=== PATIENT | male | born 1950 | race Asian ===

== ENCOUNTER → 2024-02-15 14:34 | Outpatient (REF) | payer OTHER, SELFPAY | LOC: CLINIC 14:34 | PROVIDERS: ATTENDING PHYSICIAN Orthopaedic Surgery | DX: M17.12 Unilateral primary osteoarthritis, left knee (principal); M17.11 Unilateral primary osteoarthritis, right knee | CPT/HCPCS: 73562; 73565 ==

== ENCOUNTER 2024-03-09 13:03 | Outpatient (RCR) | payer OTHER, SELFPAY | END 2024-03-09 23:59 | disposition home or self-care (01) | LOC: RPT 13:03 | PROVIDERS: ATTENDING PHYSICIAN Orthopaedic Surgery; FAMILY PHYSICIAN Nurse Practitioner Adult Health | DX: R26.9 Unspecified abnormalities of gait and mobility (principal); M17.12 Unilateral primary osteoarthritis, left knee; M17.11 Unilateral primary osteoarthritis, right knee | CPT/HCPCS: 97110; 97162; 97535 ==

== ENCOUNTER → 2024-03-22 08:10 | Outpatient (REF) | payer OTHER, SELFPAY ==
[2024-03-22 09:14] LABS: % Basophils 1.2 % (0-2); % Immature Granulocytes 0.3 % (0-0.5); % Lymphocytes 30.6 % (20.5-51.1); % Monocytes 6.9 % (1.7-9.3); Absolute Basophils 0.1 10^3/uL (0-0.2); Absolute Eosinophils 0.3 10^3/uL (0-0.7); Absolute Lymphocytes 2.1 10^3/uL (1.2-3.4); Absolute Monocytes 0.5 10^3/uL (0.1-0.6); Absolute Neutrophils 3.9 10^3/uL (1.4-6.5); Hematocrit 35.5 % (39.0-52.0); Hemoglobin 11.6 g/dL (13.0-18.0); Mean Corp Hgb Conc. 32.7 g/dL (33.0-37.0); Mean Corpuscular Hgb 29.6 pg (27.0-31.0); Mean Corpuscular Volume 90.6 fL (80.0-94.0); Mean Platelet Volume 11.2 fL (7.4-10.4); Nucleated Red Blood Cells % 0 % (-); Platelet Count 241 10^3/uL (130-400); Red Blood Cell Count 3.92 10^6/uL (4.70-6.10); Red Cell Dist. Width 12.9 % (11.5-14.5); White Blood Cell Count 6.9 10^3/uL (4.8-10.8)
[2024-03-22 10:02] LABS: ALT (SGPT) 14 U/L (0-50); AST (SGOT) 24 U/L (17-59); Albumin 4.4 g/dl (3.5-5.0); Alkaline Phosphatase 91 U/L (38-126); Blood Urea Nitrogen 27 mg/dl (9-20); Calcium 9.2 mg/dl (8.4-10.2); Carbon Dioxide 22 mmol/L (22-30); Chloride 106 mmol/L (98-107); Glucose 118 mg/dl (70-99); HDL Cholesterol 54 mg/dl; LDL Cholesterol, Calculated 105 mg/dl; Potassium 5.3 mmol/L (3.5-5.1); Sodium 143 mmol/L (135-145); Total Bilirubin 0.4 mg/dl (0.2-1.3); Total Cholesterol 171 mg/dl (50-199); Total Protein 7.5 g/dl (6.3-8.2); Triglyceride 63 mg/dl (10-149); Very Low Density Lipoprotein 12 mg/dl (0-30); eGFR > 60.00
== END ==
LOC: REG 08:10
PROVIDERS: ATTENDING PHYSICIAN Family Medicine
DX: I25.118 Atherosclerotic heart disease of native coronary artery with other forms of angina pectoris (principal)
CPT/HCPCS: 36415; 80053; 80061; 85025

== ENCOUNTER 2024-03-31 09:01 | Outpatient (RCR) | payer OTHER, SELFPAY | END 2024-03-31 23:59 | disposition home or self-care (01) | LOC: RPT 09:01 | PROVIDERS: ATTENDING PHYSICIAN Orthopaedic Surgery; FAMILY PHYSICIAN Nurse Practitioner Adult Health | DX: M17.0 Bilateral primary osteoarthritis of knee (principal); Z73.6 Limitation of activities due to disability; R26.89 Other abnormalities of gait and mobility; M62.81 Muscle weakness (generalized) | CPT/HCPCS: 97110 ==

== ENCOUNTER 2024-04-01 12:09 | Inpatient (IN) | payer OTHER, SELFPAY ==
[2024-04-01] VITALS (16 sets, daily range): BP systolic 107–169; BP diastolic 61–84; BMI 25.3
[2024-04-01] MEDS: PLAVIX 75 MG PO (08:07)
[2024-04-01] MEDS: LOW STRENGTH ASPIRIN 81 MG PO (08:07)
[2024-04-01] MEDS: NSS 230 ML IV (08:09)
--- NOTE | 2024-04-01 13:16 | HPS.HSE ---
Family Physician
-
Family Physician: NOT KNOW UNKNOWN - PT DOES
Chief Complaint
-
chest pain
History of Present Illness
73-year-old male who lives in [place] and follows with [facility] with past medical history of multivessel CAD, right bundle branch block, left anterior fascicular block, hypertension, hypercholesterolemia, presenting with progressive angina
over the past several months. History is obtained from patient's daughter. He has been having substernal chest discomfort that comes on with exertion and relieved by rest which has been getting worse. 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
catheterization today which again showed triple-vessel disease. He currently denies any symptoms.
He had coronary angiography in [facility] approximately 4 years ago and was recommended to have bypass surgery for multivessel CAD however he declined at that time.
No smoking or alcohol history.
No family history of heart conditions.
Medical History
Past Medical History
Past Medical History: Reports Other (multivessel CAD, right bundle branch block, left anterior fascicular block, hypertension, hypercholesterolemia)
Past Surgical History: Reports Other (hernia repair )
Social History
Tobacco: Non-smoker
Alcohol: None
Drug: None
Family History
Family History: Not pertinent
Allergies / Home Medications
Allergies reflects when Allergies were last updated in [employer].
Home Medications with original date entered in [employer]
Allergy/Medication List:
Allergies
Allergy/AdvReac Type Severity Reaction Status Date / Time
No Known Allergies Allergy Unverified 04/01/24 08:12
Home Medications
aspirin 81 mg chewable tablet 81 mg PO DAILY 04/01/24
atorvastatin 20 mg tablet 20 mg PO QPM 04/01/24
bisoprolol 2.5 mg-hydrochlorothiazide 6.25 mg tablet 1 tab PO DAILY 04/01/24
clopidogrel 75 mg tablet 75 mg PO DAILY 04/01/24
pantoprazole 40 mg tablet,delayed release 40 mg PO DAILY 04/01/24
telmisartan 40 mg-amlodipine 5 mg tablet 1 tab PO DAILY 04/01/24
Review of Systems
-
History Source: Patient
A 12 point ROS was completed and negative except as noted: Yes
Constitutional: Reports No Symptoms
EENT: Reports No Symptoms
Respiratory: Reports No Symptoms
Cardiac: Reports No Symptoms
Abdomen/GI: Reports No Symptoms
: Reports No Symptoms
Musculoskeletal: Reports No Symptoms
Skin: Reports No Symptoms
Neurological: Reports No Symptoms
Endocrine: Reports No Symptoms
Hematologic/Lymphatic: Reports No Symptoms
Psych: Reports No Symptoms
Physical Exam
Vital Signs
Vital Signs
Temp Pulse Resp BP Pulse Ox
97.9 F 56 16 135/76 99
04/01/24 08:02 04/01/24 12:31 04/01/24 07:56 04/01/24 12:31 04/01/24 12:31
Physical Exam
General: Well Developed, Well Nourished and No Apparent Distress
HEENT: NormoCephalic, Moist mucous membranes and Atraumatic
Respiratory: Clear
Cardiac: S1/S2 and Regular Rhythm; No Murmur or Rub
GI: Soft, Non Tender, Non Distended and Normal Bowel Sounds; No Organomegaly
Rectal: Deferred by Provider
Musculoskeletal: No Clubbing, No Cyanosis and No Edema
Skin: No Rash
Neuro: Nonfocal/grossly intact
Data Reviewed
-
Lab Data: Labs Reviewed by me
Old Records: Reviewed
Impression/Plan
-
IMPRESSION:
PLAN:
# Progressive angina secondary to triple-vessel CAD
-Underwent cardiac catheterization today showing triple-vessel CAD
-Continue aspirin and statin
-Cardiology following
-Cardiothoracic surgery consulted for consideration of CABG
-Hold Plavix for washout prior to CABG
-Check echo
History of right bundle branch block/left anterior fascicular block
Essential hypertension
-Stop telmisartan/amlodipine and continue amlodipine
-Stop bisoprolol/hydrochlorothiazide and continue Toprol-XL
Hypercholesterolemia
-Continue statin
GERD
-Continue Protonix
Full code
DVT prophylaxis�Lovenox
Cardiac diet
--- NOTE | 2024-04-01 13:49 | PTCARENOTE ---
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 pt is sr on the monitor, hr in the 60s, O2 99% RA.pt educated on plan of care and pt and family verbalized understanding. call noe within reach.
--- NOTE | 2024-04-01 14:10 | CONSULT.CT ---
Consultation
-
Date/Time Consultation Requested: 04/01/24
Date/Time Consultation Performed: 04/01/24 1415
Requesting Provider: Dr. Becka Singer MD
Performing Provider: Jeanine Chang PA-C
Reason for Consultation: Evaluation for coronary artery revascularization
Patient History
Physicians
Family Physician: Dr. Andreas Olvera MD.
Outpatient Parts Clerk Plant Maintenance: Dr. Pete Mcadams MD.
Inpatient Parts Clerk Plant Maintenance: [facility] Cardiology
History of Present Illness
Please note the information obtained for this consultation was gathered from the patient's daughter, due to the fact that the patient does not speak [place].
Patient is a 73-year-old male who was previously resided in [facility] and has subsequently been here since November 2023. Patient has PMH of multivessel CAD, he underwent coronary angiography in [facility] roughly 4 years ago and was recommended to have bypass
surgery, however declined. He also has a history of hypertension, hyperlipidemia, RBBB, and left anterior fascicular block.
Patient has been experiencing stable angina for the past 4 months. He reports intermittent chest pain with associated SOB/GONZÁLES and diaphoresis. Pain is relieved with rest. Symptoms have remained essentially the same from 4 years ago. Patient
sought medical attention with Cardiology, Dr. Pete Mcadams, who recommended outpatient elective cardiac catheterization.
Subsequent cardiac catheterization was performed today by Dr. Lucrecia MD. revealing multivessel CAD. CT surgery was consulted for evaluation of coronary artery revascularization.
Past Medical History
Past Medical History: Other
MV CAD, diagnosed s/p coronary angiography 4 years ago
HTN,HLD
RBBB
LAFB
Past Surgical History
Past Surgical History: Other
Right inguinal hernia repair 11/15/2023
Dental History
Noncontributory
Family History
Mother: at Age (85) and Cause of (Complications status post fall)
Father: at Age (90) and Cause of (Natural causes)
Social History
Alcohol: None
Drug: None
Tobacco: Non-Smoker
Personal:
Living: With Family (Daughter)
Employment: Retired (Formally worked in [employer] service)
Allergies
Allergy/AdvReac Type Severity Reaction Status Date / Time
No Known Allergies Allergy Unverified 04/01/24 08:12
Home Medications
�Medication �Instructions �Recorded �Confirmed �Type
aspirin 81 mg chewable tablet 81 mg PO DAILY 04/01/24 04/01/24 History
atorvastatin 20 mg tablet 20 mg PO QPM 04/01/24 04/01/24 History
bisoprolol 2.5 1 tab PO DAILY 04/01/24 04/01/24 History
mg-hydrochlorothiazide 6.25 mg
tablet
clopidogrel 75 mg tablet 75 mg PO DAILY 04/01/24 04/01/24 History
pantoprazole 40 mg tablet,delayed 40 mg PO DAILY 04/01/24 04/01/24 History
release
telmisartan 40 mg-amlodipine 5 mg 1 tab PO DAILY 04/01/24 04/01/24 History
tablet
Review of Systems
-
History Source: Family
General: Denies Fever, Weight Gain, Weight Loss, Fatigue or Night Sweats
HEENT: Denies Visual Changes, Dysphagia, Hoarseness or Sore Throat
Respiratory: Reports SOB and GONZÁLES; Denies Cough, Asthma or PND
Cardiac: Reports Chest Pain, CAD and Diaphoresis; Denies Known Vascular Disease, Palpitations, Nausea, Vomiting or Edema
Abdomen/GI: Denies Abdominal Pain, Reflux, Nausea or Vomiting
: Denies Dysuria, Frequency, Incontinence or Hematuria
Musculoskeletal: Denies Myalgias, Arthralgias or Edema
Skin: Denies Itching or Rash
Neurological: Denies CVA, TIA, Headaches, Syncope, Dizzy, Weakness or Seizures
Vascular: Denies Claudication or PVD
Physical Exam
Vital Signs
Temp 98.2 F 04/01/24 13:50
Temp route: Oral 04/01/24 13:50
Pulse 68 04/01/24 13:30
Rhythm: Normal sinus rhythm 04/01/24 12:30
Resp Rate 18 04/01/24 13:50
Blood pressure 138/82 04/01/24 13:30
Blood pressure extremity used: Left upper arm 04/01/24 13:50
Position: Lying 04/01/24 13:50
MAP (cuff-Juwan Monitor) 99 04/01/24 13:30
SaO2 99 04/01/24 13:50
Oxygen Mode of Delivery Room air 04/01/24 13:50
Can the patient verbally communicate their pain? Yes 04/01/24 13:09
Actual Weight 168 lb 10.458 oz 04/01/24 07:56
Body Mass Index (BMI) 25.3 04/01/24 07:56
Exam
General: Well Developed, Well Nourished and No Apparent Distress
HEENT: Normocephalic, Moist Mucous Membranes, Atraumatic, PERRLA and EOMI
Neck: Trachea Midline; Negative Carotid Bruit
Respiratory: Clear; Negative Wheezes, Crackles, Rhonchi or Accessory Muscle Use
Cardiac: S1/S2 and Regular Rhythm; Negative Murmur, Rub or Gallop
GI: Soft, Non Tender, Non Distended and Normal Bowel Sounds
Rectal: Deferred by Provider
Skin: Warm and Dry; Negative Rash
Neuro: AO x 3, Nonfocal/Grossly Intact and CN X-XII Intact
Extremities: Negative Upper Level Edema, Lower Level Edema, Upper Level Cyanosis, Lower Level Cyanosis, Upper Level Clubbing or Lower Level Clubbing
Psych: Calm
Assessment / Plan
-
Assessment:
73-year-old male with PMH of:
MV CAD, diagnosed s/p coronary angiography 4 years ago
HTN,HLD
RBBB
LAFB
Chronic Plavix therapy, last dose 04/01/24 8:07am
Now with:
Stable angina
Progressing MV CAD
Plan:
Patient's case will be discussed with attending physician.
Preoperative cardiothoracic surgery workup will be initiated.
Patient is amenable to coronary artery bypass grafting.
He will need to undergo Plavix washout, last dose is listed above.
Further details and ti lower inez regarding patient's intervention will be decided after attending physicians full review.
[2024-04-01] MEDS: TOPROL XL 25 MG PO (15:25)
[2024-04-01] MEDS: NORVASC 5 MG PO (15:26)
--- NOTE | 2024-04-01 16:21 | ITS.CL.CATH ---
Constitutional Law Professor - Catheterization
Cardiac Catheterization
Procedure Report:
LEFT HEART CATHETERIZATION
Date of Procedure: April 01, 2024
Referring: Klever Mcadams
PROCEDURES:
1. Left heart catheterization, coronary angiogram.
2. Ultrasound-guided access.
INDICATION: Patient is a 73-year-old gentleman with past medical history of hypertension, hyperlipidemia, coronary artery disease who presents with 4-month history of progressively worsening exertional angina who is now being referred for a left
heart catheterization to rule out obstructive CAD. Of note he was previously cath about [address] [facility] and was referred for coronary artery bypass grafting however tells me that given medications and controlled his symptoms he was
subsequently told that he does not need a surgery. He was referred to outpatient cardiology from [facility].
ACCESS: Right radial artery, 6 Burkinan sheath, under ultrasound guidance.
HEMODYNAMICS : (mmHg)
AO (s/d) : 140/72
LV (s/d) : 124/10
LVEDP : 14
CORONARY FINDINGS
DOMINANCE: Right
LEFT MAIN: The left main artery is a medium caliber vessel with moderate to severe mid to distal atherosclerotic plaque with significant pressure wave dampening and ventricularization with a 6 Burkinan diagnostic catheter.
LEFT ANTERIOR DESCENDING: The left anterior descending artery is a medium caliber heavily calcified vessel with 100% chronic total occlusion in the proximal portion with left to left and right to left collaterals. With collateral flow mid LAD
appears to be medium in caliber with a significant 80 to 85% distal LAD stenosis.
CIRCUMFLEX: The left circumflex artery is a medium caliber vessel which gives rise to 2 major obtuse marginal branches and 1 branching medium to large caliber left posterolateral branch. There is aneurysmal dilatation at the ostium with 50-60
percent proximal left circumflex stenosis, 40% mid left circumflex stenosis and otherwise mild diffuse atherosclerotic plaque. OM1 is a medium caliber vessel with 80% ostial stenosis and a second 70% lesion proximally. This vessel appears to be a
reasonable bypass target. OM 2 is a small caliber vessel with 85 to 90% proximal stenosis diffusely. The left posterolateral branch has a upper and lower branch which are both medium in caliber. Ostium to proximal portion of the vessel has
diffuse up to 70% stenosis involving both branches. This also appears to be a reasonable bypass target.
RIGHT CORONARY ARTERY: The right coronary artery is a small to medium caliber, dominant vessel which gives rise to the right posterior descending artery and the right posterolateral system with robust collaterals from right to left to the LAD. RCA
has serial 70% stenoses in the proximal to mid portion. Otherwise there is diffuse moderate atherosclerotic plaque within the vessel. RPDA has 2 serial 70% stenoses.
SEDATION: 61 minutes of procedural sedation was utilized. An independent er medical technician was present to assist with and help manage the patient's level of consciousness and physiologic status.
RADIATION SUMMARY: Fluoro Time (min): 12.7, Dose (mGy): 402.5, DAP (Gy.cm2) : 30.66
Closure Device: Vascular band over right radial artery, 10 cc of air.
CONCLUSIONS
1. Calcified coronary arteries with significant multivessel coronary artery disease.
2. Mildly elevated LVEDP at 14 mmHg.
RECOMMENDATIONS
1. Inpatient admission given progressively worsening symptoms in the setting of significant left main disease.
2. We will pursue CT surgery consult to discuss feasibility of coronary artery bypass grafting with bypasses possibly to LAD, OM1, LPL and RPDA.
3. Optimization of underlying medical therapy for coronary artery disease.
4. Obtain full echocardiogram to assess biventricular function and rule out significant valvular abnormalities.
5. Eventual referral for cardiac rehab as an outpatient.
Copy to: Klever Mcadams
Becka Singer MD, [facility]
--- NOTE | 2024-04-01 16:47 | CM ---
Addendum entered by RESHMA Leary 04/01/24 16:48:
*Of note, patient has no health insurance and will be HRSI.
[facility] for [facility].
Original Note:
CM following for DC planning needs.
Pt. resides in a private, 2 story home without any steps to enter with granddtr. and dtr.
Pt. is indep. w/ ADLs, mobility without the use of of any assisted device.
Will follow for DC planning needs.
--- NOTE | 2024-04-01 17:23 | PTCARENOTE ---
pt continues to be sr on the monitor, hr in the 60s, vss. pt denies cp/sob at this time. right radial band is off and dressing is CDI. pt offers no complaints at this time. pt and family educated on plan of care and pt verbalized understanding. pt
ambulating in room and tolerating well. call noe within reach.
[2024-04-01] MEDS: LIPITOR 80 MG PO (17:57)
[2024-04-01] MEDS: LOVENOX 40 MG SC (17:57)
--- NOTE | 2024-04-02 00:15 | PTCARENOTE ---
Pt. has had no complaints of chest pain so far this shift, VSS, sinus ronni 40's - 50's on the monitor. Right radial cath site dressing CDI with no hematoma and normal radial pulse. Pt. sleeping.
[2024-04-02 02:46] VITALS: BP 110/60
[2024-04-02 03:15] LABS: Hematocrit 33.4 % (39.0-52.0); Hemoglobin 11.3 g/dL (13.0-18.0); Mean Corp Hgb Conc. 33.8 g/dL (33.0-37.0); Mean Corpuscular Hgb 30.7 pg (27.0-31.0); Mean Corpuscular Volume 90.8 fL (80.0-94.0); Mean Platelet Volume 11.5 fL (7.4-10.4); Platelet Count 194 10^3/uL (130-400); Red Blood Cell Count 3.68 10^6/uL (4.70-6.10); White Blood Cell Count 5.7 10^3/uL (4.8-10.8)
[2024-04-02 03:26] LABS: INR 1.26; PT 15.6 Sec (11.4-14.6)
[2024-04-02 03:27] LABS: APTT 28.9 Sec (23.4-35.0)
[2024-04-02 03:39] LABS: ALT (SGPT) 15 U/L (0-50); AST (SGOT) 24 U/L (17-59); Albumin 3.8 g/dl (3.5-5.0); Alkaline Phosphatase 78 U/L (38-126); Blood Urea Nitrogen 16 mg/dl (9-20); Calcium 9.3 mg/dl (8.4-10.2); Carbon Dioxide 24 mmol/L (22-30); Chloride 105 mmol/L (98-107); Direct Bilirubin 0.2 mg/dl (0.0-0.4); Estimated Creatinine Clearance 63 ml/min; Glucose 101 mg/dl (70-99); HDL Cholesterol 52 mg/dl; LDL Cholesterol, Calculated 130 mg/dl; Potassium 4.5 mmol/L (3.5-5.1); Sodium 141 mmol/L (135-145); Total Bilirubin 0.6 mg/dl (0.2-1.3); Total Cholesterol 204 mg/dl (50-199); Total Protein 6.7 g/dl (6.3-8.2); Triglyceride 110 mg/dl (10-149); Very Low Density Lipoprotein 22 mg/dl (0-30); eGFR > 60.00
[2024-04-02 04:28] LABS: Hepatitis C Antibody Negative (Negative)
[2024-04-02 06:00] VITALS: BMI 24.8
[2024-04-02 07:02] VITALS: BP 122/62
--- NOTE | 2024-04-02 07:44 | W.PN.CARDCBS ---
Addendum entered and electronically signed by Augustine Barclay MD 04/02/24 09:10:
With the help of daughter as manager cargo, patient offers no complaintsPMH: Known multivessel CAD, right bundle ranch block, hypertension, hypercholesterolemia
Allergies none
Current medications: Subcu Lovenox, aspirin 81 mg a day, Protonix, atorvastatin 80 mg a day, amlodipine 5 mg daily, metoprolol ER 25 mg a day
122/62, pulse 51, respiratory rate 16, afebrile
Hemoglobin 11.3, BUN and creatinine 16 and 1.0, cholesterol 204 on atorvastatin 20 mg daily
Echo EF 55-60%, no significant valve abnormality
Cath: Severe mid-distal left main disease, 100% LAD with 80-85% distal LAD, aneurysmal ostial circumflex dilatation 50-60% proximal start stenosis, 40% mid circumflex, OM1 80% ostial and 70% proximal, OM2 85-90%, posterolateral with 70%, RCA with
70% serial stenoses
Impression:
Three-vessel CAD
Hypertension
Hyperlipidemia
Right bundle branch block
Plan:
Continue supportive care, await evaluation by CT surgery
No medication changes at present
Discussed with daughter.
Original Note:
Today's Communication / Plan
-
Continue CT surgery evaluation
Lipitor dose increased to 80mg daily
Continue aspirin 81mg daily
BP stable, continue Toprol and amlodipine
Impression / Plan
-
PCP: Dr. Robledo
Print Project Manager: Dr. Mcadams
Impression:
MV CAD by cath 04/01/2024
HTN
HLD
RBBB
LHC 04/01/2024: Left main: Moderate to severe mid to distal atherosclerotic plaque with significant pressure wave dampening and ventricularization with a 6 Yoruba diagnostic catheter. LAD: 100% chronic total occlusion of the proximal portion with
left to left and right to left collaterals. 80 to 85% distal LAD stenosis. LCx: Aneurysmal dilation at the ostium with a 50 to 60% proximal left circumflex stenosis. 40% mid left circumflex stenosis and otherwise mild diffuse atherosclerotic
plaque. OM1 is a medium caliber vessel with an 80% ostial stenosis and a second 70% lesion proximally. OM 2 is a small caliber vessel with 85 to 90% proximal stenosis diffusely. Left posterolateral branch has an upper and lower branch which are
both medium in caliber. Ostium to proximal portion of the vessel has a diffuse up to 70% stenosis involving both branches. RCA: Serial 70% stenoses in the proximal to midportion. Otherwise there is diffuse moderate atherosclerotic plaque. RPDA
has 2 serial 70% stenoses.
Echo 04/01/2024: EF 55 to 60%, aortic sclerosis, trace AI, mild MAC with trace MR, trace TR, estimated PAP 20 mmHg
Plan:
-Presenting for left heart catheterization due to typical, progressive angina. Previously told he had obstructive coronary artery disease noted by catheterization in [place]. Managed medically at the time.
-[facility] 04/01/2024 with significant multivessel coronary artery disease. CT surgery has been consulted and evaluation is ongoing
-No chest pain this admission while at rest. Continue to follow symptoms.
-Continue medical therapy with Norvasc 5 mg daily, and Toprol 25 mg daily. Blood pressure and heart rate stable.
-Prior to admission, he was on Plavix. Plavix now held in preparation for potential surgery next week. Continue aspirin 81 mg daily
-LDL 130. Placed on higher dose Lipitor 80 mg daily. Continue to follow.
Progress Note - Print Project Manager
Subjective
Date of Service: April 02, 2024
No chest pain or SOB overnight.
Objective
Labs:
04/02/24 02:54
04/02/24 02:54
Labs
Hgb 11.3 g/dL (13.0-18.0) L 04/02/24 02:54
Hct 33.4 % (39.0-52.0) L 04/02/24 02:54
Plt Count 194 10^3/uL (130-400) 04/02/24 02:54
PT 15.6 Sec (11.4-14.6) H 04/02/24 02:54
INR 1.26 04/02/24 02:54
APTT 28.9 Sec (23.4-35.0) 04/02/24 02:54
Sodium 141 mmol/L (135-145) 04/02/24 02:54
Potassium 4.5 mmol/L (3.5-5.1) 04/02/24 02:54
BUN 16 mg/dl (9-20) 04/02/24 02:54
Creatinine 1.0 mg/dL (0.7-1.3) 04/02/24 02:54
Glucose 101 mg/dl (70-99) H 04/02/24 02:54
Vital Signs and I&O:
Vital Signs
Temp Pulse Resp BP Pulse Ox
97.4 F 48 16 110/60 98
04/02/24 07:00 04/02/24 07:00 04/02/24 07:00 04/02/24 02:46 04/02/24 07:00
Vital Signs
Temp Pulse Resp BP Pulse Ox
97.4 F 48 16 110/60 98
04/02/24 07:00 04/02/24 07:00 04/02/24 07:00 04/02/24 02:46 04/02/24 07:00
Intake & Output
03/31/24 04/01/24 04/02/24 04/03/24
06:59 06:59 06:59 06:59
Intake Total 720 / 720
Balance 720 / 720
Physical Exam
Physical Exam
GEN: No distress, awake, alert, oriented x3
HEENT: supple, anicteric, mmm
LUNGS: CTA b/l, no wheezes/rales
CV: Reg, S1/S2, no murmur
EXT: No clubbing, cyanosis, or edema
NEURO: Gross non-focal
SKIN: Warm, dry, no rash
--- NOTE | 2024-04-02 07:48 | W.PN.HOSP.TC ---
Today's Communication/Plan
-
Anemia labs
Hemoglobin A1c
CT surgery consult
Assessment / Plan
Assessment / Plan
Gen-AAOx3, NAD
HEENT-NC, AT, anicteric, clear oral mm
Neck-supple
CV-reg, no M, +S1/S2
Lungs-clear B/L
Abd-soft, NT, ND
Ext-no edema
Musculoskeletal-no cyanosis, clubbing
Skin-warm and dry
Neuro-grossly non-focal
Psych-calm, cooperative
Multivessel CAD -cardiac catheterization noted. Presentation with chest discomfort. Troponins not sent on admission. Patient states last time he had chest pain was 3 to [address] surgery input for feasibility of CABG. Plavix
discontinued, last dose 04/01. Atorvastatin dose increased to 80 mg daily. Continue aspirin, Toprol-XL.
Admission EKG with sinus bradycardia, left axis deviation, right bundle branch block, T wave abnormality consistent with inferolateral ischemia.
Echocardiogram shows LVEF 55 to 60%, normal diastolic function, normal RV size and function, no significant valvular pathology.
Hyperglycemia -rule out DM2. Check hemoglobin A1c.
Normocytic anemia -suspect chronic. MCV 90.8. Hemoglobin 11.3. Will check anemia labs.
Essential hypertension -controlled.
Hyperlipidemia -continue atorvastatin.
Right bundle branch block/left anterior fascicular block
GERD -pantoprazole.
Full code
Anticipated Discharge: > 48 hours
Subjective/Interval History
-
Date of Service: April 02, 2024
Patient seen and examined. Denies chest pain, no complaints.
Objective Data
-
Labs:
Laboratory Results
04/02/24
02:54
WBC 5.7
Hgb 11.3 L
Hct 33.4 L
Plt Count 194
PT 15.6 H
INR 1.26
APTT 28.9
Sodium 141
Potassium 4.5
Chloride 105
Carbon Dioxide 24
BUN 16
Creatinine 1.0
Glucose 101 H
Calcium 9.3
Total Bilirubin 0.6
AST 24
ALT 15
Alkaline Phosphatase 78
Vital Signs:
Vital Signs
Temp Pulse Resp BP Pulse Ox
97.4 F 48 16 110/60 98
04/02/24 07:00 04/02/24 07:00 04/02/24 07:00 04/02/24 02:46 04/02/24 07:00
I&O
04/01/24 04/02/24 04/03/24
06:59 06:59 06:59
Intake Total 720 / 720
Balance 720 / 720
Review of Systems
-
History Source: Patient
All other systems: Reviewed and negative
[2024-04-02] MEDS: TOPROL XL 25 MG PO (08:43)
[2024-04-02] MEDS: PROTONIX 40 MG PO (08:43)
[2024-04-02] MEDS: LOW STRENGTH ASPIRIN 81 MG PO (08:43)
[2024-04-02] MEDS: NORVASC 5 MG PO (08:44)
[2024-04-02 09:32] LABS: Iron 63 ug/dl (49-181)
[2024-04-02 09:41] LABS: Percent Saturation 23 % (20-50); Total Iron Binding Capacity 272 ug/dl (261-462)
[2024-04-02 10:01] LABS: Glycohemoglobin (HgbA1c) 6.1 % (4.0-5.6)
[2024-04-02 11:19] VITALS: BP 114/74
[2024-04-02 11:36] LABS: Ferritin 66.8 ng/ml (17.9-464.0)
[2024-04-02 12:08] LABS: Folate 6.9 ng/ml (2.76-20); Vitamin B12 204 pg/ml (239-931)
[2024-04-02 16:18] VITALS: BP 139/63
[2024-04-02] MEDS: LOVENOX 40 MG SC (17:35)
[2024-04-02] MEDS: LIPITOR 80 MG PO (17:35)
--- NOTE | 2024-04-02 18:00 | PTCARENOTE ---
pt is sb on the monitor, hr in the 40s-50s, vss. pt offers no complaints at this time. pt denies cp/sob at this time. right radial is cdi. pt ambulating through the halls and tolerating well. pt educated on plan of care and pt verbalized
understanding. call noe within reach.
[2024-04-02 19:13] VITALS: BP 114/68
[2024-04-02 22:23] VITALS: BP 98/53
[2024-04-03] VITALS (9 sets, daily range): BP systolic 105–141; BP diastolic 68–84; BMI 24.8
--- NOTE | 2024-04-03 02:20 | PTCARENOTE ---
Pt. has no complaints of CP, SR-SB on the monitor (rate 40's with sleep, occasionally dips into the 30's). Right radial cath site WNL. Ambulates independently in halls and room when awake. Currently sleeping.
--- NOTE | 2024-04-03 08:09 | W.PN.HOSP.TC ---
Today's Communication/Plan
-
Oral B12
CT surgery consult
Assessment / Plan
Assessment / Plan
Gen-AAOx3, NAD
HEENT-NC, AT, anicteric, clear oral mm
Neck-supple
CV-reg, no M, +S1/S2
Lungs-clear B/L
Abd-soft, NT, ND
Ext-no edema
Musculoskeletal-no cyanosis, clubbing
Skin-warm and dry
Neuro-grossly non-focal
Psych-calm, cooperative
Multivessel CAD -cardiac catheterization noted. Presentation with chest discomfort. Troponins not sent on admission. Patient states last time he had chest pain was 3 to [address] surgery input for feasibility of CABG. Plavix
discontinued, last dose 04/01. Atorvastatin dose increased to 80 mg daily. Continue aspirin, Toprol-XL.
Admission EKG with sinus bradycardia, left axis deviation, right bundle branch block, T wave abnormality consistent with inferolateral ischemia.
Echocardiogram shows LVEF 55 to 60%, normal diastolic function, normal RV size and function, no significant valvular pathology.
Impaired fasting glucose -hemoglobin A1c 6.1%. Lifestyle changes needed.
Normocytic anemia -suspect chronic. MCV 90.8. Hemoglobin 11.3. Vitamin B12 deficiency noted, will start oral repletion.
Essential hypertension -controlled.
Hyperlipidemia -continue atorvastatin.
Right bundle branch block/left anterior fascicular block
GERD -pantoprazole.
Full code
Anticipated Discharge: > 48 hours
Subjective/Interval History
-
Date of Service: April 03, 2024
Patient seen and examined. No complaints.
Objective Data
-
Vital Signs:
Vital Signs
Temp Pulse Resp BP Pulse Ox
98.2 F 44 20 117/80 98
04/03/24 07:47 04/03/24 04:00 04/03/24 07:47 04/03/24 03:51 04/03/24 07:47
I&O
04/02/24 04/03/24 04/04/24
06:59 06:59 06:59
Intake Total 720 / 720 960 / 960
Balance 720 / 720 960 / 960
Review of Systems
-
History Source: Patient
All other systems: Reviewed and negative
[2024-04-03] MEDS: LOW STRENGTH ASPIRIN 81 MG PO (08:31)
[2024-04-03] MEDS: PROTONIX 40 MG PO (08:31)
[2024-04-03] MEDS: TOPROL XL 25 MG PO (08:32)
[2024-04-03] MEDS: NORVASC 5 MG PO (08:32)
[2024-04-03] MEDS: VITAMIN B-12 1000 MCG PO (08:32)
--- NOTE | 2024-04-03 11:08 | W.PN.UPDATE ---
Update Note
Progress Note Update
Brief CTS Note
No significant change overnight.
Remains chest pain free.
Planning for CABG on 04/[address] Alo Johnson.
Remainder of medical management per primary team in the interim.
--- NOTE | 2024-04-03 16:36 | W.PN.CARDCBS ---
Today's Communication / Plan
-
Stable cardiac status
Decrease metoprolol ER to 12.5 mg daily
CABG on
Impression / Plan
-
PCP: Dr. Robledo
Airport Planner: Dr. Mcadams
Impression:
MV CAD by cath 04/01/2024
HTN
HLD
RBBB
LHC 04/01/2024: Left main: Moderate to severe mid to distal atherosclerotic plaque with significant pressure wave dampening and ventricularization with a 6 [place] diagnostic catheter. LAD: 100% chronic total occlusion of the proximal portion with
left to left and right to left collaterals. 80 to 85% distal LAD stenosis. LCx: Aneurysmal dilation at the ostium with a 50 to 60% proximal left circumflex stenosis. 40% mid left circumflex stenosis and otherwise mild diffuse atherosclerotic
plaque. OM1 is a medium caliber vessel with an 80% ostial stenosis and a second 70% lesion proximally. OM 2 is a small caliber vessel with 85 to 90% proximal stenosis diffusely. Left posterolateral branch has an upper and lower branch which are
both medium in caliber. Ostium to proximal portion of the vessel has a diffuse up to 70% stenosis involving both branches. RCA: Serial 70% stenoses in the proximal to midportion. Otherwise there is diffuse moderate atherosclerotic plaque. RPDA
has 2 serial 70% stenoses.
Echo 04/01/2024: EF 55 to 60%, aortic sclerosis, trace AI, mild MAC with trace MR, trace TR, estimated PAP 20 mmHg
Plan:
He seems stable from a cardiac standpoint. He offers no complaints.
Blood pressure is well-controlled but he is very bradycardic, will decrease metoprolol ER to 12.5 mg daily.
CABG is currently scheduled for .
Discussed with daughter by phone.
Progress Note - Airport Planner
Subjective
Date of Service: April 03, 2024:
Per daughter on phone, patient offers no complaints. Surgery is tentatively scheduled for .
Current medications: Enoxaparin 40 mg a day, aspirin 81 mg a day, pantoprazole 40 mg a day, atorvastatin 80 mg a day, amlodipine 5 mg a day, metoprolol ER 25 mg daily, vitamin B12
127/73, pulse 44, respiratory 20, temp 36.6, afebrile, head neck exam unremarkable, lungs are clear, regular rate and rhythm, no obvious murmurs, abdomen benign, extremities without clubbing cyanosis or edema
No labs today
Bradycardic often mid 40s.
Objective
Labs:
04/02/24 02:54
04/02/24 02:54
Labs
Hgb 11.3 g/dL (13.0-18.0) L 04/02/24 02:54
Hct 33.4 % (39.0-52.0) L 04/02/24 02:54
Plt Count 194 10^3/uL (130-400) 04/02/24 02:54
PT 15.6 Sec (11.4-14.6) H 04/02/24 02:54
INR 1.26 04/02/24 02:54
APTT 28.9 Sec (23.4-35.0) 04/02/24 02:54
Sodium 141 mmol/L (135-145) 04/02/24 02:54
Potassium 4.5 mmol/L (3.5-5.1) 04/02/24 02:54
BUN 16 mg/dl (9-20) 04/02/24 02:54
Creatinine 1.0 mg/dL (0.7-1.3) 04/02/24 02:54
Glucose 101 mg/dl (70-99) H 04/02/24 02:54
Vital Signs and I&O:
Vital Signs
Temp Pulse Resp BP Pulse Ox
36.6 C 44 20 127/73 99
04/03/24 12:59 04/03/24 16:00 04/03/24 12:59 04/03/24 12:57 04/03/24 12:59
Vital Signs
Temp Pulse Resp BP Pulse Ox
36.6 C 44 20 127/73 99
04/03/24 12:59 04/03/24 16:00 04/03/24 12:59 04/03/24 12:57 04/03/24 12:59
Intake & Output
04/01/24 04/02/24 04/03/24 04/04/24
07:59 07:59 07:59 07:59
Intake Total 1200 / 1200 960 / 960
Balance 1200 / 1200 960 / 960
Physical Exam
Physical Exam
See above
[2024-04-03] MEDS: LOVENOX 40 MG SC (17:43)
[2024-04-03] MEDS: LIPITOR 80 MG PO (17:43)
--- NOTE | 2024-04-03 17:51 | PTCARENOTE ---
pt continues to be sb with PVCs, vss. pt offers no complaints at this time. pt educated about plan of care and pt verbalized understanding. call noe within reach.
--- NOTE | 2024-04-03 19:52 | PTCARENOTE ---
Pt. received at change of shift. Pt. seen and assessed in room. Pt. AOx3, no complaints of pain at this time. BP stable. Tele reading sinus ronni, no complaints of dizziness. Plan of care explained to patient. Call noe within reach. Continuing to
monitor at this time.
[2024-04-04] VITALS (7 sets, daily range): BP systolic 105–130; BP diastolic 61–74; BMI 24.7
--- NOTE | 2024-04-04 08:31 | W.PN.CARDCBS ---
Addendum entered and electronically signed by Augustine Barclay MD 04/04/24 13:42:
He offers no complaints, daughter at bedside
Current meds reviewed, metoprolol has been reduced to 12.5 mg daily
130/61, pulse now 60s on reduced metoprolol, respirate 18, afebrile, head neck exam unremarkable, lungs are clear, regular rate and rhythm, abdomen benign, extremities without edema
No labs today
Impression:
Multivessel CAD
Hypertension
Hyperlipidemia
Right bundle branch block
Plan:
Stable cardiac status, CABG planned for April 07
Original Note:
Today's Communication / Plan
-
Await CT surgery, tentatively planned 04/07
Impression / Plan
-
PCP: Dr. Robledo
President & Founder: Dr. Mcadams
Impression:
MV CAD by cath 04/01/2024
HTN
HLD
RBBB
LHC 04/01/2024: Left main: Moderate to severe mid to distal atherosclerotic plaque with significant pressure wave dampening and ventricularization with a 6 Chinese diagnostic catheter. LAD: 100% chronic total occlusion of the proximal portion with
left to left and right to left collaterals. 80 to 85% distal LAD stenosis. LCx: Aneurysmal dilation at the ostium with a 50 to 60% proximal left circumflex stenosis. 40% mid left circumflex stenosis and otherwise mild diffuse atherosclerotic
plaque. OM1 is a medium caliber vessel with an 80% ostial stenosis and a second 70% lesion proximally. OM 2 is a small caliber vessel with 85 to 90% proximal stenosis diffusely. Left posterolateral branch has an upper and lower branch which are
both medium in caliber. Ostium to proximal portion of the vessel has a diffuse up to 70% stenosis involving both branches. RCA: Serial 70% stenoses in the proximal to midportion. Otherwise there is diffuse moderate atherosclerotic plaque. RPDA
has 2 serial 70% stenoses.
Echo 04/01/2024: EF 55 to 60%, aortic sclerosis, trace AI, mild MAC with trace MR, trace TR, estimated PAP 20 mmHg
Plan:
-Presented for left heart catheterization due to typical, progressive angina. Previously told he had obstructive coronary artery disease noted by catheterization in [place], managed medically at the time.
-[facility] 04/01/2024 with significant multivessel coronary artery disease. CT surgery has been consulted and evaluation is ongoing. Tentatively for OR 04/07.
-Remains pain free this admission.
-Continue current medications. Toprol dose reduced 04/03 due to bradycardia.
-Plavix on hold this admission, continue aspirin 81mg daily for now.
-LDL 130. Placed on higher dose Lipitor 80 mg daily. Continue to follow.
Progress Note - President & Founder
Subjective
Date of Service: April 04, 2024
No complaints. Chest pain free.
Objective
Labs:
04/02/24 02:54
04/02/24 02:54
Labs
Hgb 11.3 g/dL (13.0-18.0) L 04/02/24 02:54
Hct 33.4 % (39.0-52.0) L 04/02/24 02:54
Plt Count 194 10^3/uL (130-400) 04/02/24 02:54
PT 15.6 Sec (11.4-14.6) H 04/02/24 02:54
INR 1.26 04/02/24 02:54
APTT 28.9 Sec (23.4-35.0) 04/02/24 02:54
Sodium 141 mmol/L (135-145) 04/02/24 02:54
Potassium 4.5 mmol/L (3.5-5.1) 04/02/24 02:54
BUN 16 mg/dl (9-20) 04/02/24 02:54
Creatinine 1.0 mg/dL (0.7-1.3) 04/02/24 02:54
Glucose 101 mg/dl (70-99) H 04/02/24 02:54
Vital Signs and I&O:
Vital Signs
Temp Pulse Resp BP Pulse Ox
97.7 F 47 18 128/71 97
04/04/24 03:31 04/04/24 05:00 04/04/24 03:31 04/04/24 03:31 04/03/24 22:28
Vital Signs
Temp Pulse Resp BP Pulse Ox
97.7 F 47 18 128/71 97
04/04/24 03:31 04/04/24 05:00 04/04/24 03:31 04/04/24 03:31 04/03/24 22:28
Intake & Output
04/02/24 04/03/24 04/04/24 04/05/24
06:59 06:59 06:59 06:59
Intake Total 720 / 720 960 / 960 480 / 480
Balance 720 / 720 960 / 960 480 / 480
Physical Exam
Physical Exam
GEN: No distress, awake, alert, oriented x3
HEENT: supple, anicteric, mmm
LUNGS: CTA b/l, no wheezes/rales
CV: Reg, S1/S2, no murmur
EXT: No clubbing, cyanosis, or edema
NEURO: Gross non-focal
SKIN: Warm, dry, no rash
[2024-04-04] MEDS: LOW STRENGTH ASPIRIN 81 MG PO (08:37)
[2024-04-04] MEDS: PROTONIX 40 MG PO (08:37)
[2024-04-04] MEDS: TOPROL XL 12.5 MG PO (08:38)
[2024-04-04] MEDS: VITAMIN B-12 1000 MCG PO (08:38)
[2024-04-04] MEDS: NORVASC 5 MG PO (08:38)
--- NOTE | 2024-04-04 15:42 | W.PN.HOSP.TC ---
Today's Communication/Plan
-
Offers no new complaints.
Chest pain-free.
Continue current cardiovascular regimen
Tentatively for bypass on 04/07
Assessment / Plan
Assessment / Plan
Impression:
Presentation with accelerated angina
Multivessel CAD by catheterization 04/01
Essential hypertension
Dyslipidemia
RBBB
Plan:
Multivessel CAD -cardiac catheterization noted. Presentation with chest discomfort. Troponins not sent on admission. Patient states last time he had chest pain was 3 to [address] surgery input for feasibility of CABG. Plavix
discontinued, last dose 04/01. Atorvastatin dose increased to 80 mg daily. Continue aspirin, Toprol-XL.
Admission EKG with sinus bradycardia, left axis deviation, right bundle branch block, T wave abnormality consistent with inferolateral ischemia.
Echocardiogram shows LVEF 55 to 60%, normal diastolic function, normal RV size and function, no significant valvular pathology.
Impaired fasting glucose -hemoglobin A1c 6.1%. Lifestyle changes needed.
Normocytic anemia -suspect chronic. MCV 90.8. Hemoglobin 11.3. Vitamin B12 deficiency noted, will start oral repletion.
Essential hypertension -controlled.
Hyperlipidemia -continue atorvastatin.
Right bundle branch block/left anterior fascicular block
GERD -pantoprazole.
Full code
Anticipated Discharge: > 48 hours
Subjective/Interval History
-
Date of Service: April 04, 2024
Objective Data
-
Vital Signs:
Vital Signs
Temp Pulse Resp BP Pulse Ox
97.5 F 67 18 130/61 99
04/04/24 12:07 04/04/24 08:40 04/04/24 12:07 04/04/24 08:40 04/04/24 12:07
I&O
04/03/24 04/04/24 04/05/24
06:59 06:59 06:59
Intake Total 960 / 960 480 / 480
Balance 960 / 960 480 / 480
Physical Exam
-
General: Well Developed and No Apparent Distress
HEENT: Normocephalic, Atraumatic and Moist Mucous Membranes
Respiratory: Clear to Auscultation
Cardiac: Regular Rhythm and S1/S2; Negative Murmur, Rub or Gallop
GI: Soft, Nontender, Nondistended and Normal Bowel Sounds; Negative Organomegaly
Rectal: Deferred by Provider
Musculoskeletal: No Clubbing, No Cyanosis and No Edema
Skin: Negative Rash
Neuro: Nonfocal/Grossly Intact
--- NOTE | 2024-04-04 17:29 | CM ---
plan CABG thurs 04/07- cm to do pre op teaching tomorrow.
[2024-04-04] MEDS: LIPITOR 80 MG PO (18:18)
[2024-04-04] MEDS: LOVENOX 40 MG SC (18:18)
--- NOTE | 2024-04-04 20:26 | PTCARENOTE ---
Pt. received at change of shift. Pt. seen and assessed in room. Pt. sitting comfortably in chair, no complaints of chest pain, shortness of breath or dizziness. BP stable. Tele reading SB in the 50s-60s. Plan of care explained to pt. via language
line. Pt. verbalizes understanding. Call noe within reach. Continuing to monitor at this time.
[2024-04-05] VITALS (7 sets, daily range): BP systolic 100–124; BP diastolic 65–80; BMI 24.7
[2024-04-05] MEDS: VITAMIN B-12 1000 MCG PO (09:45)
[2024-04-05] MEDS: TOPROL XL 12.5 MG PO (09:45)
[2024-04-05] MEDS: NORVASC 5 MG PO (09:45)
[2024-04-05] MEDS: PROTONIX 40 MG PO (09:45)
[2024-04-05] MEDS: LOW STRENGTH ASPIRIN 81 MG PO (09:45)
--- NOTE | 2024-04-05 12:17 | W.PN.CARDCBS ---
Addendum entered and electronically signed by Brennon Vegas MD 04/05/24 13:12:
I saw and examined the patient.
The HAZARDOUS MATERIALS ANALYST or PA's note was reviewed and I agree with the note.
Comment: General: Well developed, well nourished in NAD.
Neck: Supple, no JVD, HJR, carotids +2 B/L, no bruits bilaterally.
Heart: Non displaced PMI, RRR, no murmurs, No S3, S4, no rubs.
Lungs: Clear to auscultation bilaterally, no wheeze, rhonchi, rubs bilaterally,
normal expiratory phase.
Extremities: No clubbing, cyanosis or edema bilaterally.
Neuro: Grossly nonfocal, awake, alert and oriented x3.
Stable cardiology status. For CABG on 04/07.
Original Note:
Today's Communication / Plan
-
OR on
No chest pain
Impression / Plan
-
PCP: Dr. Robledo
Corn Breeder: Dr. Mcadams
Impression:
MV CAD by cath 04/01/2024
HTN
HLD
RBBB
LHC 04/01/2024: Left main: Moderate to severe mid to distal atherosclerotic plaque with significant pressure wave dampening and ventricularization with a 6 [place]ian diagnostic catheter. LAD: 100% chronic total occlusion of the proximal portion with
left to left and right to left collaterals. 80 to 85% distal LAD stenosis. LCx: Aneurysmal dilation at the ostium with a 50 to 60% proximal left circumflex stenosis. 40% mid left circumflex stenosis and otherwise mild diffuse atherosclerotic
plaque. OM1 is a medium caliber vessel with an 80% ostial stenosis and a second 70% lesion proximally. OM 2 is a small caliber vessel with 85 to 90% proximal stenosis diffusely. Left posterolateral branch has an upper and lower branch which are
both medium in caliber. Ostium to proximal portion of the vessel has a diffuse up to 70% stenosis involving both branches. RCA: Serial 70% stenoses in the proximal to midportion. Otherwise there is diffuse moderate atherosclerotic plaque. RPDA
has 2 serial 70% stenoses.
Echo 04/01/2024: EF 55 to 60%, aortic sclerosis, trace AI, mild MAC with trace MR, trace TR, estimated PAP 20 mmHg
Plan:
-Patient was referred for elective LHC on 04/01/24 by [facility]. Patient reported that he had previously been recommended CABG in [place] in about 2019. Cardiac cath revealed MV CAD and patient was recommended admission due
to symptoms and severity of CAD.
-No chest pain since admission.
-Cont aspirin 81 mg daily.
-Outpatient dose of Plavix on hold in anticipation of CT surgery. Last dose of Plavix was 04/01/24
-LDL 130. Outpatient dose of atorvastatin increased to 80 mg daily.
-Per CT surgery team note, OR planned for 04/07/24
Progress Note - Corn Breeder
Subjective
Date of Service: April 05, 2024
He feels well, no chest pain
Objective
Labs:
04/02/24 02:54
04/02/24 02:54
Labs
Hgb 11.3 g/dL (13.0-18.0) L 04/02/24 02:54
Hct 33.4 % (39.0-52.0) L 04/02/24 02:54
Plt Count 194 10^3/uL (130-400) 04/02/24 02:54
PT 15.6 Sec (11.4-14.6) H 04/02/24 02:54
INR 1.26 04/02/24 02:54
APTT 28.9 Sec (23.4-35.0) 04/02/24 02:54
Sodium 141 mmol/L (135-145) 04/02/24 02:54
Potassium 4.5 mmol/L (3.5-5.1) 04/02/24 02:54
BUN 16 mg/dl (9-20) 04/02/24 02:54
Creatinine 1.0 mg/dL (0.7-1.3) 04/02/24 02:54
Glucose 101 mg/dl (70-99) H 04/02/24 02:54
Vital Signs and I&O:
Vital Signs
Temp Pulse Resp BP Pulse Ox
98.2 F 61 18 118/80 100
04/05/24 11:36 04/05/24 08:00 04/05/24 11:36 04/05/24 07:53 04/05/24 11:36
Vital Signs
Temp Pulse Resp BP Pulse Ox
98.2 F 61 18 118/80 100
04/05/24 11:36 04/05/24 08:00 04/05/24 11:36 04/05/24 07:53 04/05/24 11:36
Intake & Output
04/03/24 04/04/24 04/05/24 04/06/24
06:59 06:59 06:59 06:59
Intake Total 960 / 960 480 / 480 150 / 150 240 / 240
Balance 960 / 960 480 / 480 150 / 150 240 / 240
Physical Exam
Physical Exam
GEN: NAD. AAOx3
HEENT: EOMI, MMM
LUNGS: No audible wheeze
CV: SR on tele
ABD: ND
EXT: No edema B/L, +PT pulses B/L
NEURO: Gross non-focal
SKIN: No rash
--- NOTE | 2024-04-05 13:45 | W.PN.UPDATE ---
Addendum entered and electronically signed by Alo Johnson MD 04/05/24 16:07:
I saw and examined the patient.
The PA's note was reviewed and I agree with the note.
Comment:
CARDIAC SURGERY ATTENDING:
I had a greater than 60-minute conversation with Mr. Patel and his daughter with the aid of Johnny shredding machine knife changer. We reviewed his coronary pathology, the proposed operative management mentions, the associated operative risks (including, but not limited
to, , stroke, PA, arrhythmia, PNA, SEBASTIAN/F, bleeding, and infection), the expected in-hospital postprocedural course, and expected outpatient recovery. All questions were answered to the best of my abilities. The patient is agreeable to proceed
with surgery. I have tentatively scheduled him for this coming . I anticipate coronary artery bypass grafting x 3-4 with MOI to LAD, GSV to OM1, GSV to LPL, and hopefully GSV to PDA (will require intraoperative assessment).
Thank you for the opportunity to participate in the care of this kind gentleman.
Please call with any questions or concerns.
Alo Johnson MD
[phone]
Original Note:
Update Note
Progress Note Update
Surgery Date is 04/[address] Johnson
Procedure Type:�Isolated CABG
PERIOPERATIVE OUTCOME ESTIMATE %
Operative Mortality 1.13%
Morbidity & Mortality 6.82%
Stroke 1.73%
Renal Failure 0.882%
Reoperation 3%
Prolonged Ventilation 3.29%
Deep Sternal Wound Infection 0.076%
Long Hospital Stay (>14 days) 4.54%
Short Hospital Stay (<6 days)* 42.5%
Clinical Summary
Planned Surgery: Isolated CABG, Urgent, First cardiovascular surgery
Demographics: 73 year old, , male, 77kg, 174cm, BMI: 25.4 kg/m�
Lab Values: Creatinine: 1 mg/dL, Hematocrit: 33.4%, WBC Count: 5.7 10�/�L, Platelet Count: 304305 cells/�L
Substance Abuse: Never smoker
Risk Factors / Comorbidities: Diabetes Mellitus , Hypertension
Cardiac Status: Ejection Fraction = 55%
Coronary Artery Disease: 3 vessels diseased, Proximal LAD Stenosis >=70%, Non-ST Elevation PA, PA: 1 to 7 Days
Valve Disease: Trivial/Trace AR, Trivial/Trace MR, Trivial/Trace TR
--- NOTE | 2024-04-05 16:26 | W.PN.HOSP.TC ---
Today's Communication/Plan
-
For CABG on 04/07
Assessment / Plan
Assessment / Plan
Impression:
Presentation with accelerated angina
Multivessel CAD by catheterization 04/01
Essential hypertension
Dyslipidemia
RBBB
Plan:
Multivessel CAD
Cardiac catheter revealing multivessel CAD and patient recommended CABG
Currently chest pain-free while on aspirin, statin, beta-raheem
Last Plavix dose 04/01
Plan is for CABG on 04/07.
Impaired fasting glucose -hemoglobin A1c 6.1%. Lifestyle changes needed.
Normocytic anemia -suspect chronic. MCV 90.8. Hemoglobin 11.3. Vitamin B12 deficiency noted, will start oral repletion.
Essential hypertension -controlled.
Hyperlipidemia -continue atorvastatin.
Right bundle branch block/left anterior fascicular block
GERD -pantoprazole.
Full code
Anticipated Discharge: > 48 hours
Subjective/Interval History
-
Date of Service: April 05, 2024
Objective Data
-
Vital Signs:
Vital Signs
Temp Pulse Resp BP Pulse Ox
98.2 F 61 18 118/80 100
04/05/24 11:36 04/05/24 08:00 04/05/24 11:36 04/05/24 07:53 04/05/24 11:36
I&O
04/04/24 04/05/24 04/06/24
06:59 06:59 06:59
Intake Total 480 / 480 150 / 150 240 / 240
Balance 480 / 480 150 / 150 240 / 240
Physical Exam
-
General: Well Developed and No Apparent Distress
HEENT: Normocephalic, Atraumatic and Moist Mucous Membranes
Respiratory: Clear to Auscultation
Cardiac: Regular Rhythm and S1/S2; Negative Murmur, Rub or Gallop
GI: Soft, Nontender, Nondistended and Normal Bowel Sounds; Negative Organomegaly
Rectal: Deferred by Provider
Musculoskeletal: No Clubbing, No Cyanosis and No Edema
Skin: Negative Rash
Neuro: Nonfocal/Grossly Intact
--- NOTE | 2024-04-05 17:17 | CM ---
spoke to pt and daughter in room ( she translated) we discussed preop teaching including kishore farias driving restrictions, he is prev indep, lives with hi daughter and drandaughter in a 2 story ome with no steps to enter. he does not use any dme's.
he is agreeable to a f/u visit from the ct transitional care nurse after dc. he has the ct surgery educ book. plan is for cabg 04/07, cm to follow.
[2024-04-05] MEDS: LIPITOR 80 MG PO (18:07)
[2024-04-05] MEDS: LOVENOX 40 MG SC (18:07)
[2024-04-06 04:23] VITALS: BP 119/78
[2024-04-06 04:26] VITALS: BMI 24.6
[2024-04-06 08:14] VITALS: BP 140/71
[2024-04-06] MEDS: LOW STRENGTH ASPIRIN 81 MG PO (08:17)
[2024-04-06] MEDS: NORVASC 5 MG PO (08:17)
[2024-04-06] MEDS: VITAMIN B-12 1000 MCG PO (08:18)
[2024-04-06] MEDS: TOPROL XL 12.5 MG PO (08:18)
[2024-04-06] MEDS: PROTONIX 40 MG PO (08:18)
[2024-04-06] MEDS: FLUSH (NSS) 1 FLUSH IV (08:18)
--- NOTE | 2024-04-06 08:27 | W.PN.CARDCBS ---
Addendum entered and electronically signed by Brennon Vegas MD 04/06/24 12:10:
I saw and examined the patient.
The SMALL EQUIPMENT OPERATOR or PA's note was reviewed and I agree with the note.
Comment: General: Well developed, well nourished in NAD.
No chest pain. For CABG in a.m. Discussed with patient and family at bedside. Discussed with CT surgery.
Original Note:
Today's Communication / Plan
-
Chest pain free
Scheduled for CABG in AM
Check ECG today and then follow post-op
Impression / Plan
-
PCP: Dr. Robledo
Crozer Operator: Dr. Mcadams
Impression:
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
HTN
HLD
RBBB
LHC 04/01/2024: Left main: Moderate to severe mid to distal atherosclerotic plaque with significant pressure wave dampening and ventricularization with a 6 [place] diagnostic catheter. LAD: 100% chronic total occlusion of the proximal portion with
left to left and right to left collaterals. 80 to 85% distal LAD stenosis. LCx: Aneurysmal dilation at the ostium with a 50 to 60% proximal left circumflex stenosis. 40% mid left circumflex stenosis and otherwise mild diffuse atherosclerotic
plaque. OM1 is a medium caliber vessel with an 80% ostial stenosis and a second 70% lesion proximally. OM 2 is a small caliber vessel with 85 to 90% proximal stenosis diffusely. Left posterolateral branch has an upper and lower branch which are
both medium in caliber. Ostium to proximal portion of the vessel has a diffuse up to 70% stenosis involving both branches. RCA: Serial 70% stenoses in the proximal to midportion. Otherwise there is diffuse moderate atherosclerotic plaque. RPDA
has 2 serial 70% stenoses.
Echo 04/01/2024: EF 55 to 60%, aortic sclerosis, trace AI, mild MAC with trace MR, trace TR, estimated PAP 20 mmHg
Plan:
-No chest pain overnight.
-Patient is scheduled for CABG on 04/07/24
-Last ECG was 04/01/24, will recheck 04/06/24 and then follow post-op
-Cont aspirin 81 mg daily.
-Outpatient dose of Plavix on hold in anticipation of CT surgery. Last dose of Plavix was 04/01/24
-LDL 130. Outpatient dose of atorvastatin increased to 80 mg daily.
HPI: Patient was referred for elective LHC on 04/01/24 by the [facility]. Patient reported that he had previously been recommended CABG in [place] in about 2019. Cardiac cath revealed MV CAD and patient was recommended admission
due to symptoms and severity of CAD.
Progress Note - Crozer Operator
Subjective
Date of Service: April 06, 2024
He feels well, no chest pain
Objective
Labs:
04/02/24 02:54
04/02/24 02:54
Labs
Hgb 11.3 g/dL (13.0-18.0) L 04/02/24 02:54
Hct 33.4 % (39.0-52.0) L 04/02/24 02:54
Plt Count 194 10^3/uL (130-400) 04/02/24 02:54
PT 15.6 Sec (11.4-14.6) H 04/02/24 02:54
INR 1.26 04/02/24 02:54
APTT 28.9 Sec (23.4-35.0) 04/02/24 02:54
Sodium 141 mmol/L (135-145) 04/02/24 02:54
Potassium 4.5 mmol/L (3.5-5.1) 04/02/24 02:54
BUN 16 mg/dl (9-20) 04/02/24 02:54
Creatinine 1.0 mg/dL (0.7-1.3) 04/02/24 02:54
Glucose 101 mg/dl (70-99) H 04/02/24 02:54
Vital Signs and I&O:
Vital Signs
Temp Pulse Resp BP Pulse Ox
97.9 F 56 16 140/71 99
04/06/24 08:14 04/06/24 08:17 04/06/24 08:14 04/06/24 08:17 04/06/24 08:14
Vital Signs
Temp Pulse Resp BP Pulse Ox
97.9 F 56 16 140/71 99
04/06/24 08:14 04/06/24 08:17 04/06/24 08:14 04/06/24 08:17 04/06/24 08:14
Intake & Output
04/04/24 04/05/24 04/06/24 04/07/24
06:59 06:59 06:59 06:59
Intake Total 480 / 480 150 / 150 240 / 240
Balance 480 / 480 150 / 150 240 / 240
Physical Exam
Physical Exam
GEN: NAD. AAOx3
HEENT: EOMI, MMM
LUNGS: No audible wheeze
CV: SR on tele
ABD: ND
EXT: No edema B/L, +PT pulses B/L
NEURO: Gross non-focal
SKIN: No rash
--- NOTE | 2024-04-06 09:26 | W.PN.UPDATE ---
Update Note
Progress Note Update
Consent obtained. Pre-operative ordered placed. CABG tomorrow with Dr. mg.
--- NOTE | 2024-04-06 10:07 | PTCARENOTE ---
Received patient this morning sitting oob in the chair eating his breakfast. Patient is able to communicate basic needs in czech and denies any chest pain. Very pleasant and cooperative. Right radial site is open to air with no signs of hematoma.
Call noe in reach, doing ordered EKG now.
[2024-04-06 11:22] VITALS: BP 143/65
--- NOTE | 2024-04-06 13:17 | CM ---
CM following for DC planning needs.
Plan is for CT Surgery on ., 04/07.
Anticipated DC plan is for home w/ CT Transitional Care RN.
CM to cont. to follow.
--- NOTE | 2024-04-06 13:33 | PTCARENOTE ---
Patient's daughter in visiting and is able to translate. She informed him of planned prep/shower tonight, remaining NPO x midnight expcept for meds. Patient is offering no complaints, eating lunch now. His daughter will be here early tomorrow
morning before scheduled surgery.
[2024-04-06 15:16] VITALS: BP 127/80
--- NOTE | 2024-04-06 17:34 | W.PN.UPDATE ---
Update Note
Progress Note Update
Multivessel CAD.
Patient is for coronary artery bypass graft on 04/07.
Hospitalist service will sign off.
[2024-04-06] MEDS: LIPITOR 80 MG PO (17:46)
[2024-04-06 19:20] VITALS: BP 147/71
[2024-04-06 23:33] VITALS: BP 116/75
[2024-04-07] VITALS (53 sets, daily range): BP systolic 72–158; BP diastolic 51–91; BMI 24.3
[2024-04-07] MEDS: MAGNESIUM OXIDE 500 MG PO (06:13)
[2024-04-07] MEDS: PROTONIX 40 MG PO (06:13)
[2024-04-07] MEDS: LOPRESSOR 12.5 MG PO (06:13)
[2024-04-07] MEDS: BACTROBAN 2% OINTMENT 1 APPLIC NASAL ×2 (06:15→21:53)
--- NOTE | 2024-04-07 07:03 | PTCARENOTE ---
Pt NPO at midnight for CABG, Clips and CHG prep completed. VSS, Pt denies any pain or discomfort.
[2024-04-07 07:26] LABS: ACT+ - POC 104 Seconds (82-134)
[2024-04-07 08:02] LABS: Urine Albumin Trace (Neg - Trace); Urine Bilirubin Negative (Negative); Urine Character Clear (Clear); Urine Color Yellow; Urine Glucose Negative (Negative); Urine Ketone Negative (Negative); Urine Leukocyte Negative (Negative); Urine Nitrite Negative (Negative); Urine Occult Blood 3+ (Negative); Urine Urobilinogen Negative (Neg - 1+)
[2024-04-07 08:15] LABS: Urine Mucus Few
[2024-04-07 08:16] LABS: Urine Red Blood Cell 16-20 /HPF (0-2)
[2024-04-07 08:18] LABS: Urine White Cell 0-2 /HPF (0-5)
[2024-04-07 08:50] LABS: B.E. - POC -0.2 mmol/L; Glucose - POC 137 mg/dl (70-99); HCO3 - POC 23 mmol/L (21-29); Hematocrit - POC 35 % PCV (42-52); Hemodilution- POC Yes; Hemoglobin Calculated - POC 12.1; Ionized Calcium - POC 1.13 mmol/L (1.12-1.27); O2 Saturation %Calculated-POC 99.9 5 (92-96); PCO2 - POC 33 mmHg (35-45); PO2 - POC 278 mmHg (80-100); POC Comment PRE; Potassium - POC 3.9 mmol/L (3.6-5.0); Sodium - POC 139 mmol/L (135-145); pH - POC 7.45 (7.35-7.45)
[2024-04-07 09:40] LABS: ACT+ - POC 601 Seconds (82-134)
[2024-04-07 10:21] LABS: ACT+ - POC 470 Seconds (82-134)
[2024-04-07 10:30] LABS: B.E. - POC -2.1 mmol/L; Glucose - POC 159 mg/dl (70-99); HCO3 - POC 27 mmol/L (21-29); Hematocrit - POC 32 % PCV (42-52); Hemodilution- POC No; Hemoglobin Calculated - POC 10.9; Ionized Calcium - POC 1.21 mmol/L (1.12-1.27); O2 Saturation %Calculated-POC 99.7 5 (92-96); PCO2 - POC 66 mmHg (35-45); PO2 - POC 232 mmHg (80-100); POC Comment PRE; Potassium - POC 4.3 mmol/L (3.6-5.0); Sodium - POC 138 mmol/L (135-145); pH - POC 7.22 (7.35-7.45)
[2024-04-07 10:41] LABS: ACT+ - POC 541 Seconds (82-134)
[2024-04-07 11:11] LABS: B.E. - POC 3.4 mmol/L; Glucose - POC 167 mg/dl (70-99); HCO3 - POC 28 mmol/L (21-29); Hematocrit - POC 23 % PCV (42-52); Hemodilution- POC Yes; Ionized Calcium - POC 0.91 mmol/L (1.12-1.27); PCO2 - POC 40 mmHg (35-45); PO2 - POC 387 mmHg (80-100); POC Comment CPB; Potassium - POC 5.8 mmol/L (3.6-5.0); Sodium - POC 138 mmol/L (135-145); pH - POC 7.45 (7.35-7.45)
[2024-04-07 11:21] LABS: ACT+ - POC 506 Seconds (82-134)
--- NOTE | 2024-04-07 11:34 | CM ---
Chart reviewed. Patient is in the OR today. Patient is her visiting with his daughter from [place]. Patient is independent of ADLS, lives with his daughter and granddaughter in a 2 STH, 0 ELOY, 0 DME. Plan is for the patient to return home with CT
Transitional RN. CM to follow
[2024-04-07 11:52] LABS: B.E. - POC 2.5 mmol/L; Glucose - POC 179 mg/dl (70-99); HCO3 - POC 27 mmol/L (21-29); Hematocrit - POC 24 % PCV (42-52); Hemodilution- POC Yes; Hemoglobin Calculated - POC 8.1; Ionized Calcium - POC 0.89 mmol/L (1.12-1.27); PCO2 - POC 38 mmHg (35-45); PO2 - POC 385 mmHg (80-100); POC Comment CPB; Potassium - POC 6.3 mmol/L (3.6-5.0); Sodium - POC 137 mmol/L (135-145); pH - POC 7.45 (7.35-7.45)
[2024-04-07 12:03] LABS: ACT+ - POC 579 Seconds (82-134)
[2024-04-07 12:24] LABS: B.E. - POC 0.8 mmol/L; Glucose - POC 148 mg/dl (70-99); HCO3 - POC 25 mmol/L (21-29); Hematocrit - POC 25 % PCV (42-52); Hemodilution- POC Yes; Hemoglobin Calculated - POC 8.6; Ionized Calcium - POC 0.95 mmol/L (1.12-1.27); O2 Saturation %Calculated-POC 99.8 5 (92-96); PCO2 - POC 37 mmHg (35-45); PO2 - POC 218 mmHg (80-100); POC Comment WARM; Potassium - POC 4.8 mmol/L (3.6-5.0); Sodium - POC 140 mmol/L (135-145); pH - POC 7.43 (7.35-7.45)
[2024-04-07 12:38] LABS: ACT+ - POC 530 Seconds (82-134)
[2024-04-07 13:06] LABS: B.E. - POC 0.8 mmol/L; Glucose - POC 134 mg/dl (70-99); HCO3 - POC 26 mmol/L (21-29); Hematocrit - POC 25 % PCV (42-52); Hemodilution- POC Yes; Hemoglobin Calculated - POC 8.4; Ionized Calcium - POC 0.93 mmol/L (1.12-1.27); O2 Saturation %Calculated-POC 99.9 5 (92-96); PCO2 - POC 42 mmHg (35-45); PO2 - POC 316 mmHg (80-100); POC Comment WARM; Potassium - POC 4.4 mmol/L (3.6-5.0); Sodium - POC 142 mmol/L (135-145)
[2024-04-07 13:10] LABS: ACT+ - POC 107 Seconds (82-134)
[2024-04-07 13:15] LABS: B.E. - POC -0.6 mmol/L; Glucose - POC 126 mg/dl (70-99); HCO3 - POC 24 mmol/L (21-29); Hematocrit - POC 25 % PCV (42-52); Hemodilution- POC Yes; Hemoglobin Calculated - POC 8.4; Ionized Calcium - POC 1.17 mmol/L (1.12-1.27); O2 Saturation %Calculated-POC 99.6 5 (92-96); PCO2 - POC 41 mmHg (35-45); PO2 - POC 184 mmHg (80-100); POC Comment POST; Potassium - POC 3.8 mmol/L (3.6-5.0); Sodium - POC 142 mmol/L (135-145); pH - POC 7.38 (7.35-7.45)
--- NOTE | 2024-04-07 13:37 | W.CVOR.SURPR ---
CVOR Surgeon Immed Pre Op
-
I have examined this patient prior to performance of the scheduled procedure.
The patient's condition is unchanged from the time of the dictated/written History and
Physical and the patient is able to undergo the scheduled procedure.
--- NOTE | 2024-04-07 13:37 | W.IMMPOSTOP ---
Addendum entered and electronically signed by Alo Johnson MD 04/07/24 15:15:
[id number]
Original Note:
Surgical Immed Post Op Note
-
CARDIAC SURGERY OPERATIVE NOTE:
Preoperative Dx:
MVCAD including ROUTE CARRIER of LAD
Unstable/escalating angina
HTN/HLD
Postoperative Dx:
Same
Procedures:
1) Median sternotomy
2) Takedown of MOI (narrow pedicle)
3) Endoscopic harvest/prep of RLE GSV
4) CABG x 4 (MOI to LAD, GSV to OM1, GSV to LPL1, GSV to PDA)
Surgeon:
Alo Johnson M.D.
Skin Installer:
Jeanine Chang P.A.-C.; wheelchair van operator first responder throughout; closure
Anesthesia:
Willian Crockett M.D. and Iveth Tran, C.R.N.A.
Perfusion:
Tommie Phoenix C.C.P.; CPB 165, XC: 101
Findings:
The MOI was a healthy appearing conduit w/ ELD 2.5-3.0mm w/ brisk blood flow; slightly thin walled.
The GSV was a healthy appearing conduit w/ ELD 3.0-3.5mm over the majority of its course; slightly thin walled. There was a section of GSV that was profoundly thin w/ two venotomies not amenable to suture repair. Fortunately, this segment was not
necessary to accomplish planned bypass grafts & additional GSV harvest was not needed.
The LAD was visible on the epicardial surface from its midpoint distally. This vessel was profoundly calcified throughout its course w/o a clear spot for arteriotomy/anastomosis. At the distal LAD a spot that appeared amenable to bypass was
identified. The LAD at this area was 1.25mm w/ thick/atheromatous canales. I passed a 1mm vessel probe proximally & distally w/ only minor resistance. Good flow observed despite poor quality of this coronary target.
OM1 was visible on the epicardial surface & then took an intramyocardial course. Normal canales at anastomosis w/ ELD 2.5mm
LPL1 was visible on the epicardial surface. Normal canales at anastomosis w/ ELD 2.5mm
LPL2 was also visible on the epicardial surface. It took a nearly identical course of LPL1.
RPDA was visible on the epicardial surface w/ scattered calcifications throughout its length. A spot amenable to bypass identified in proximal vessel. ELD 2.5mm
Good flow in all via transit-time U/S flow probe assessment
LVEF 55-60%, no RWMA, trace AI, trace MR
Transfusions:
None
Complications:
None
Implants:
CT x 4 (B/L pleura, inferior mediastinal, superior mediastinal)
Sternal wires x 10
Condition:
68 sinus w/ isoelectric STs (0.4/0.1); 91/59. CVP: 15. 100%
GTTS: levophed 6, precedex 0.5, insulin 0.5
Stable/guarded to CVICU
--- NOTE | 2024-04-07 14:09 | CON.INTV ---
Consultation
Consultation Request
Date/Time Consultation Requested: 04/07/2024 - 1342
Date/Time Consultation Performed: 04/07/2024 - 1402
Requesting Provider: Linnea Ramires PA-C
Performing Provider: Misha Cisneros MD
Reason for Consultation: s/p CABG x4
Medical History
-
Chief Complaint: Chest pain
History of Present Illness:
73-year-old male non-smoker with a past medical history of CAD, bifascicular block, hypertension and hypercholesterolemia who presented with chest pain. Chest pain has been ongoing for several months. It is relieved by rest and worsening with
exertion. Left heart catheterization performed on 04/01/2024 showed significant multivessel CAD with calcified coronary arteries and mildly elevated LVEDP at 14 mmHg. CAD involve the left main coronary artery with moderate�severe mid�distal
atherosclerotic plaque. Patient was initially admitted to the IVU with cardiothoracic surgery + cardiology consulted. TTE on 04/01/2024 showed preserved LVEF of 55-60% with normal RV size and function with no significant valvular pathology. Today,
the patient underwent CABG x 4 with no immediate complications. He was transferred to the CVICU with [address] (bilateral pleural + mediastinal x 2), and now valve maker services consulted for additional management/recommendations.
When I saw the patient, he was in bed, just extubated to nasal cannula at 6 L/min. He is currently saturating 100%, with BP via A-line: 87/55, heart rate is 76 and BP via NIBP: 89/60. He is currently on insulin drip at 2 units/hr, and Levophed at
2mcg/min. He has mediastinal chest tubes x2 + left/right pleural chest tubes.
PMHx: Multivessel CAD, history of bifascicular block, hypertension, hypercholesterolemia
PSHx: Hernia repair
Past Medical History
Past Medical History: Other (Above as per HPI)
Past Surgical History: Other (Above as per HPI)
Social History
Tobacco: Non-smoker
Alcohol: None
Drug: None
Family History
Family History: Reviewed & Not Pertinent
Allergies / Home Medications
Allergies
Allergy/AdvReac Type Severity Reaction Status Date / Time
No Known Allergies Allergy Unverified 04/01/24 08:12
Home Medications
�Medication �Instructions �Recorded �Confirmed �Last Taken �Type
aspirin 81 mg chewable tablet 81 mg PO DAILY Blood Clot 04/01/24 04/01/24 04/01/24 08:00 History
Prevention/Tx
atorvastatin 20 mg tablet 20 mg PO QPM High Cholesterol 04/01/24 04/01/24 03/29/24 17:00 History
bisoprolol 2.5 1 tab PO DAILY Blood Pressure 04/01/24 04/01/24 03/30/24 06:00 History
mg-hydrochlorothiazide 6.25 mg
tablet
clopidogrel 75 mg tablet 75 mg PO DAILY Blood Clot 04/01/24 04/01/24 04/01/24 08:00 History
Prevention/Tx
pantoprazole 40 mg tablet,delayed 40 mg PO DAILY Gastrointestinal 04/01/24 04/01/24 03/31/24 08:00 History
release Issue
telmisartan 40 mg-amlodipine 5 mg 1 tab PO DAILY Blood Pressure 04/01/24 04/01/24 03/28/24 08:00 History
tablet
Review of Systems
-
Unable to Obtain full review of systems at this time due to: Acuity (Still sedated from being intubated)
Vitals / Labs / Diagnostic Testing
Vital Signs
Temp Pulse Resp BP Pulse Ox
96.7 F L 71 23 129/75 97
04/07/24 16:01 04/07/24 16:01 04/07/24 16:01 04/07/24 16:01 04/07/24 16:01
Lab Data
04/07/24 14:44
Laboratory Results
04/07/24
14:44
PT 21.4 H
INR 1.84
APTT 31.8
pH 7.35
pCO2 41
pO2 188 H
HCO3 22.6
O2 Delivery Level
Diagnostic Testing:
Physical Exam
-
HEENT: Normocephalic and Anicteric
Cardiovascular: S1/S2 and Peripheral Edema (negative)
Respiratory: Wheeze (negative), Rales (negative), Rhonchi (negative), Non-Labored Respirations and Other (chest tubes: mediastinal chest tubes x2 + left/right pleural chest tubes)
GI: Soft, Non Distended, Non Tender and Normal Bowel Sounds
Neurology: Tremors (negative) and Other (Sleepy but easily arousable to voice)
Skin: Warm and Dry
General: Respiratory Distress (negative), Comfortable, Chills (negative) and Sweats (negative)
Assessment
-
Assessment: 73-year-old male non-smoker with a past medical history of CAD, bifascicular block, hypertension and hypercholesterolemia who presented with chest pain. Chest pain has been ongoing for several months. It is relieved by rest and
worsening with exertion. Left heart catheterization performed on 04/01/2024 showed significant multivessel CAD with calcified coronary arteries and mildly elevated LVEDP at 14 mmHg. CAD involve the left main coronary artery with moderate�severe
mid�distal atherosclerotic plaque. Patient was initially admitted to the IVU with cardiothoracic surgery + cardiology consulted. TTE on 04/01/2024 showed preserved LVEF of 55-60% with normal RV size and function with no significant valvular
pathology. On 04/07/2024 he underwent CABG x 4 with no immediate complications. He was transferred to the CVICU with [address] (bilateral pleural + mediastinal x 2), and now valve maker services consulted for additional
management/recommendations.
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
Impression:
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
#Acute anemia
#Thrombocytopenia
#Hypocalcemia
#Bifascicular block
#Hypertension
#Hypercholesterolemia
#Right lower lobe nodules includin.4 x 1.5 x 1.6 cm nodule and 5mm x 3mm lateral RLL subplueral nodule
Plan:
Patient successfully extubated today to nasal cannula and is currently breathing comfortably on 6 L/min saturating 100%
Maintain SpO2 >90-94%
prn nebulized bronchodilators - not currently bronchospastic
Pulmonary artery catheter parameters will be followed
Pressors/antihypertensive/inotropes/diuretics will be provided as needed
Maintain MAP>65
Replete electrolytes with K>4, Mg>2
Monitor chest tube output (mediastinal chest tubes x 2+ left/right pleural chest tubes)
Monitor hemoglobin
Monitor platelet count and coags
Transfuse blood products as needed to maintain Hb>7g/dL, plt>50k (given post-operative status)
CT surgery managing chest tubes
Monitor blood sugar to maintain euglycemia with goal BG 140-180
Insulin drip per protocol
Aspiration precautions
DVT prophylaxis
Early nutrition
Early mobilization
He will need repeat CT chest for lung nodules seen in the right lower lobe. 1 nodule measures 1.4 cm x 1.5 cm x 1.6 cm, and another lateral subpleural nodule measures 5 mm x 3 mm. If there are any prior imaging to compare to then that would be
very helpful. Otherwise we will repeat CT chest in 3 months to assess stability.
Critical care statement: A total of 46 minutes of critical care time was provided for this patient today. This includes management of ventilator, spontaneous breathing trial, arterial blood gases, pressors, of unstable vital signs, evaluation of the
patient at bedside, reviewing the patient's pertinent medical records including radiographs, microbiology, laboratory evaluations, and discussion with primary team and critical care nursing.
Data:
CXR 04/07/2024: New postoperative changes. No pneumothorax; Retrocardiac atelectasis.
CT chest without contrast 04/02/2024:
No significant calcification of the ascending aorta. There is dilation of the ascending aorta with short axis diameter of 4.1 cm at the level the right main pulmonary artery.
Nodular density within the posteromedial and inferior aspect of the right lower lobe of the lung. Morphologic appearance suggests that this is most likely an area of scarring, but neoplasia/malignancy cannot be excluded. See above discussion for
further evaluation recommendations.
Benign-appearing subpleural nodule within the posterolateral aspect of the right lower lobe.
Mild bilateral apical pleural parenchymal scarring, which has a benign appearance.
Mild fatty infiltration of the liver.
[2024-04-07 14:44] LABS: Glucose - Point of Care 152 mg/dl (70-99)
[2024-04-07 14:56] LABS: B.E. -2.8 mmol/L; HCO3 22.6 mmol/L (21-28); Ionized Calcium 0.99 mMOL/L (1.15-1.33); O2 Saturation % 98.3 % (94-98); PCO2 41 mmHg (35-48); PO2 188 mmHg (83-108); Potassium 3.9 mMOL/L (3.5-5.1); Sodium 138 mMOL/L (136-145); pH 7.35 (7.35-7.45)
--- NOTE | 2024-04-07 15:00 | PTCARENOTE ---
received pt from CVOR into room 2268 @ 1430. pt intubated and sedated. core temp 96.4. jose hugger applied. #8 ETT @ right lip. vent set to SIMV 14/500/5/5/40%. POX 100%. NSR on monitor, HR 60s. B/L radial and DP pulses palpable. heart tones clear.
no edema present. RIJ cordis and slic catheter intact w KVOs infusing. CVP~9. pt hypotensive on arrival. Levo pushed by STAFFING COORDINATOR. Levo gtt infusing @ 8, Precedex gtt infusing @ 0.5. Insulin gtt infusing per glycemic protocol. B/L breath sounds present.
CT x4 intact to -20cm wall suction, drainage WNL, no air leak present. hypoactive bowel sounds present. watson catheter intact, draining CYU. SHERIN drain intact to RLE. all surgical sites stable.
[2024-04-07 15:04] LABS: INR 1.84; PT 21.4 Sec (11.4-14.6)
[2024-04-07 15:05] LABS: APTT 31.8 Sec (23.4-35.0); Hematocrit 20.4 % (39.0-52.0); Hemoglobin 7.1 g/dL (13.0-18.0)
[2024-04-07 15:15] LABS: Blood Urea Nitrogen 16 mg/dl (9-20); Estimated Creatinine Clearance 70 ml/min; Glucose 146 mg/dl (70-99); Magnesium 2.4 mg/dl (1.6-2.3)
[2024-04-07 15:20] LABS: Hematocrit 21.3 % (39.0-52.0); Hemoglobin 7.3 g/dL (13.0-18.0); Mean Corp Hgb Conc. 34.3 g/dL (33.0-37.0); Mean Corpuscular Hgb 29.9 pg (27.0-31.0); Mean Corpuscular Volume 87.3 fL (80.0-94.0); Mean Platelet Volume 11.1 fL (7.4-10.4); Platelet Count 135 10^3/uL (130-400); Red Blood Cell Count 2.44 10^6/uL (4.70-6.10); Red Cell Dist. Width 13.1 % (11.5-14.5); White Blood Cell Count 12.9 10^3/uL (4.8-10.8)
[2024-04-07 15:20] LABS: Platelet Count 117 10^3/uL (130-400)
[2024-04-07] MEDS: ANCEF 10 IV ×2 (15:50)
[2024-04-07] MEDS: VITAMIN B-12 PO (15:51)
[2024-04-07] MEDS: NEURONTIN PO ×2 (15:51→16:43)
[2024-04-07] MEDS: TYLENOL PO (15:51)
[2024-04-07] MEDS: NSS 500 IV (15:52)
--- NOTE | 2024-04-07 15:52 | W.PN.CARDCBS ---
Addendum entered and electronically signed by Pete Ibarra MD 04/07/24 16:33:
Patient seen and examined
Agree with PA-C note and assessment
Agree with PA-C plan
Exam:
Remains intubated and sedated
Right Cordis
Mediastinal tubes noted
Cor regular no murmurs
Lungs diminished but clear
Abdomen soft nontender bowel sounds
No extremity edema
Impression:
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
CAD s/p CABG with MOI to LAD, vein graft to OM-1 and LPL 1, vein graft to PDA 04/07/24
HTN
HLD
RBBB
Acute blood loss anemia
LHC 04/01/2024: Left main: Moderate to severe mid to distal atherosclerotic plaque with significant pressure wave dampening and ventricularization with a 6 Indian diagnostic catheter. LAD: 100% chronic total occlusion of the proximal portion with
left to left and right to left collaterals. 80 to 85% distal LAD stenosis. LCx: Aneurysmal dilation at the ostium with a 50 to 60% proximal left circumflex stenosis. 40% mid left circumflex stenosis and otherwise mild diffuse atherosclerotic
plaque. OM1 is a medium caliber vessel with an 80% ostial stenosis and a second 70% lesion proximally. OM 2 is a small caliber vessel with 85 to 90% proximal stenosis diffusely. Left posterolateral branch has an upper and lower branch which are
both medium in caliber. Ostium to proximal portion of the vessel has a diffuse up to 70% stenosis involving both branches. RCA: Serial 70% stenoses in the proximal to midportion. Otherwise there is diffuse moderate atherosclerotic plaque. RPDA
has 2 serial 70% stenoses.
Echo 04/01/2024: EF 55 to 60%, aortic sclerosis, trace AI, mild MAC with trace MR, trace TR, estimated PAP 20 mmHg
CHAS 04/07/2024: Postop EF 55 to 60%
Plan:
-BP improving with 1 unit of blood and weaning Levophed
-Repeat H&H pending for 1815 on 04/07/24
-Post-op ECG reviewed by me and is similar to 04/06/24 with RBBB and nonspecific changes
-Amiodarone 200 mg TID ordered
-Cont aspirin 81 mg daily and eventually restart Plavix
-LDL 130. Outpatient dose of atorvastatin increased to 80 mg daily this admission.
Original Note:
Documented by User: Mya Rushing PA-C 04/07/24 16:02
Today's Communication / Plan
-
Levophed running at 12
1 unit of PRBCs hanging
ECG stable, no acute ischemic changes
Impression / Plan
-
PCP: Dr. Robledo
Greenhouse Laborer: Dr. Mcadams
Impression:
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
CAD s/p CABG with MOI to LAD, vein graft to OM-1 and LPL 1, vein graft to PDA 04/07/24
HTN
HLD
RBBB
Acute blood loss anemia
LHC 04/01/2024: Left main: Moderate to severe mid to distal atherosclerotic plaque with significant pressure wave dampening and ventricularization with a 6 Indian diagnostic catheter. LAD: 100% chronic total occlusion of the proximal portion with
left to left and right to left collaterals. 80 to 85% distal LAD stenosis. LCx: Aneurysmal dilation at the ostium with a 50 to 60% proximal left circumflex stenosis. 40% mid left circumflex stenosis and otherwise mild diffuse atherosclerotic
plaque. OM1 is a medium caliber vessel with an 80% ostial stenosis and a second 70% lesion proximally. OM 2 is a small caliber vessel with 85 to 90% proximal stenosis diffusely. Left posterolateral branch has an upper and lower branch which are
both medium in caliber. Ostium to proximal portion of the vessel has a diffuse up to 70% stenosis involving both branches. RCA: Serial 70% stenoses in the proximal to midportion. Otherwise there is diffuse moderate atherosclerotic plaque. RPDA
has 2 serial 70% stenoses.
Echo 04/01/2024: EF 55 to 60%, aortic sclerosis, trace AI, mild MAC with trace MR, trace TR, estimated PAP 20 mmHg
CHAS 04/07/2024: Postop EF 55 to 60%
Plan:
-BP 72/52, Levophed running at 12 and 1 unit of PRBCs hanging
-Repeat H&H pending for 1814 on 04/07/24
-Post-op ECG reviewed by me and is similar to 04/06/24 with RBBB and nonspecific changes
-Amiodarone 200 mg TID ordered
-Cont aspirin 81 mg daily and eventually restart Plavix
-LDL 130. Outpatient dose of atorvastatin increased to 80 mg daily this admission.
HPI: Patient was referred for elective LHC on 04/01/24 by the [facility]. Patient reported that he had previously been recommended CABG in [place] in about 2019. Cardiac cath revealed MV CAD and patient was recommended admission
due to symptoms and severity of CAD.
Progress Note - Greenhouse Laborer
Subjective
Date of Service: April 07, 2024
Intubated and sedated
Objective
Labs:
04/07/24 14:44
Labs
Hgb 7.3 g/dL (13.0-18.0) L 04/07/24 15:08
Hct 21.3 % (39.0-52.0) L 04/07/24 15:08
Plt Count 135 10^3/uL (130-400) 04/07/24 15:08
PT 21.4 Sec (11.4-14.6) H 04/07/24 14:44
INR 1.84 04/07/24 14:44
APTT 31.8 Sec (23.4-35.0) 04/07/24 14:44
Sodium 141 mmol/L (135-145) 04/02/24 02:54
Potassium 4.5 mmol/L (3.5-5.1) 04/02/24 02:54
BUN 16 mg/dl (9-20) 04/07/24 14:44
Creatinine 0.9 mg/dL (0.7-1.3) 04/07/24 14:44
Glucose 146 mg/dl (70-99) H 04/07/24 14:44
Vital Signs and I&O:
Vital Signs
Temp Pulse Resp BP Pulse Ox
96.3 F L 70 15 72/52 100
04/07/24 15:30 04/07/24 15:45 04/07/24 15:45 04/07/24 15:37 04/07/24 15:45
Vital Signs
Temp Pulse Resp BP Pulse Ox
96.3 F L 70 15 72/52 100
04/07/24 15:30 04/07/24 15:45 04/07/24 15:45 04/07/24 15:37 04/07/24 15:45
Intake & Output
04/05/24 04/06/24 04/07/24 04/08/24
06:59 06:59 06:59 06:59
Intake Total 150 / 150 240 / 240 510 / 510 602.2 / 602.2
Output Total 730 / 730
Balance 150 / 150 240 / 240 510 / 510 -127.8 / -127.8
Physical Exam
Physical Exam
GEN: Intubated and sedated
LUNGS: Intubated and on the ventilator, coarse BS anterolaterally
CV: SR on tele
ABD: ND
EXT: No edema B/L, +PT pulses B/L
SKIN: No rash

Documented by User: Pete Ibarra MD 04/07/24 16:26
Today's Communication / Plan
-
Levophed running at 12 and is now down to 4
1 unit of PRBCs hanging
ECG stable, no acute ischemic changes
Impression / Plan
-
PCP: Dr. Robledo
Greenhouse Laborer: Dr. Mcadams
Impression:
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
CAD s/p CABG with MOI to LAD, vein graft to OM-1 and LPL 1, vein graft to PDA 04/07/24
HTN
HLD
RBBB
Acute blood loss anemia
LHC 04/01/2024: Left main: Moderate to severe mid to distal atherosclerotic plaque with significant pressure wave dampening and ventricularization with a 6 Indian diagnostic catheter. LAD: 100% chronic total occlusion of the proximal portion with
left to left and right to left collaterals. 80 to 85% distal LAD stenosis. LCx: Aneurysmal dilation at the ostium with a 50 to 60% proximal left circumflex stenosis. 40% mid left circumflex stenosis and otherwise mild diffuse atherosclerotic
plaque. OM1 is a medium caliber vessel with an 80% ostial stenosis and a second 70% lesion proximally. OM 2 is a small caliber vessel with 85 to 90% proximal stenosis diffusely. Left posterolateral branch has an upper and lower branch which are
both medium in caliber. Ostium to proximal portion of the vessel has a diffuse up to 70% stenosis involving both branches. RCA: Serial 70% stenoses in the proximal to midportion. Otherwise there is diffuse moderate atherosclerotic plaque. RPDA
has 2 serial 70% stenoses.
Echo 04/01/2024: EF 55 to 60%, aortic sclerosis, trace AI, mild MAC with trace MR, trace TR, estimated PAP 20 mmHg
CHAS 04/07/2024: Postop EF 55 to 60%
Plan:
-BP improving and weaning Levophed
-Repeat H&H pending for 1814 on 04/07/24
-Post-op ECG reviewed by me and is similar to 04/06/24 with RBBB and nonspecific changes
-Amiodarone 200 mg TID ordered
-Cont aspirin 81 mg daily and eventually restart Plavix
-LDL 130. Outpatient dose of atorvastatin increased to 80 mg daily this admission.
HPI: Patient was referred for elective LHC on 04/01/24 by the [facility]. Patient reported that he had previously been recommended CABG in [place] in about 2019. Cardiac cath revealed MV CAD and patient was recommended admission
due to symptoms and severity of CAD.
Progress Note - Greenhouse Laborer
Subjective
Total Time Spent with Patient (in minutes): Patient seen and examined. The patient is still intubated and sedated
[2024-04-07 16:08] LABS: Glucose - Point of Care 150 mg/dl (70-99)
[2024-04-07] MEDS: LOW STRENGTH ASPIRIN PO (16:38)
[2024-04-07] MEDS: PROTONIX PO (16:39)
[2024-04-07] MEDS: TOPROL XL PO (16:39)
[2024-04-07] MEDS: PACERONE PO (16:43)
[2024-04-07 16:58] LABS: Glucose - Point of Care 123 mg/dl (70-99)
--- NOTE | 2024-04-07 17:00 | PTCARENOTE ---
pt BP labile. on/off Levo gtt-max dose 12mcg. 2 units PRBCs given per orders. Ca+ and K+ repleted. pt placed on SBT. POX 100%. RR 12. SR w PACs and PVCs. CT output and UO WNL. all surgical sites stable. family updated. pt resting comfortably.
[2024-04-07] MEDS: KCL 50 IV (17:07)
[2024-04-07 18:01] LABS: Glucose - Point of Care 109 mg/dl (70-99)
[2024-04-07 18:06] LABS: B.E. -2.6 mmol/L; HCO3 22.6 mmol/L (21-28); Ionized Calcium 1.17 mMOL/L (1.15-1.33); O2 Saturation % 98.9 % (94-98); PCO2 40 mmHg (35-48); PO2 138 mmHg (83-108); Potassium 4.8 mMOL/L (3.5-5.1); pH 7.36 (7.35-7.45)
[2024-04-07] MEDS: ZOFRAN 4 MG IV (18:17)
[2024-04-07] MEDS: LIPITOR PO (18:19)
[2024-04-07 18:21] LABS: Hematocrit 27.3 % (39.0-52.0); Hemoglobin 9.6 g/dL (13.0-18.0); Platelet Count 121 10^3/uL (130-400)
[2024-04-07] MEDS: DILAUDID 0.25 MG IV (18:27)
--- NOTE | 2024-04-07 18:30 | PTCARENOTE ---
pt extubated to 6LNC without incident. no wheezing or stridor present. steel layout worker used to communicate w pt. pt AAOx4. pt c/o 10/10 sternal incision pain. 0.25mg dilaudid given. POX 100%.
--- NOTE | 2024-04-07 18:30 | RESPNOTE ---
Pt extubated to 6L, tolerated well, SAO2 99%
[2024-04-07] MEDS: CALCIUM CHLORIDE 10% SYRINGE 50 ML IV (18:57)
[2024-04-07] MEDS: CALCIUM CHLORIDE 10% SYRINGE 50 MG IV (18:57)
[2024-04-07] MEDS: REGLAN 10 MG IV (19:50)
[2024-04-07] MEDS: ANCEF 5 IV (19:51)
--- NOTE | 2024-04-07 20:00 | PTCARENOTE ---
PT very labile BP and HR with any activity. LR bolus given x2. NS BP & HR labile. AAOx4 see worklist for detailed assessment
[2024-04-07 20:34] LABS: Glucose - Point of Care 107 mg/dl (70-99)
[2024-04-07 21:36] LABS: Glucose - Point of Care 125 mg/dl (70-99)
[2024-04-07 21:41] LABS: Ionized Calcium 1.24 mMOL/L (1.15-1.33)
[2024-04-07] MEDS: LOW STRENGTH ASPIRIN 81 MG PO (21:52)
[2024-04-07 21:53] LABS: Hematocrit 28.5 % (39.0-52.0); Hemoglobin 10.3 g/dL (13.0-18.0); Platelet Count 135 10^3/uL (130-400)
[2024-04-07] MEDS: SENOKOT-S PO (21:53)
[2024-04-07 22:38] LABS: Glucose - Point of Care 116 mg/dl (70-99)
[2024-04-07] MEDS: LEVOPHED 250 IV (22:38)
[2024-04-07] MEDS: ALBUMIN 5% 250 IV (23:12)
[2024-04-08] VITALS (37 sets, daily range): BP systolic 87–139; BP diastolic 46–121; PULSE 81; O2SAT 99; BMI 27.1
--- NOTE | 2024-04-08 | PTCARENOTE ---
no change from previous assessment
[2024-04-08 00:37] LABS: Glucose - Point of Care 138 mg/dl (70-99)
[2024-04-08] MEDS: PACERONE PO (02:11)
[2024-04-08] MEDS: TYLENOL PO (02:11)
[2024-04-08] MEDS: NEURONTIN PO (02:11)
[2024-04-08 02:45] LABS: Glucose - Point of Care 135 mg/dl (70-99)
[2024-04-08 05:19] LABS: Glucose - Point of Care 143 mg/dl (70-99)
[2024-04-08] MEDS: TYLENOL 1000 MG PO ×3 (05:27→21:39)
[2024-04-08] MEDS: ANCEF 5 IV ×2 (05:33→13:30)
[2024-04-08 05:41] LABS: Hematocrit 24.6 % (39.0-52.0); Hemoglobin 8.9 g/dL (13.0-18.0); Mean Corp Hgb Conc. 36.2 g/dL (33.0-37.0); Mean Corpuscular Hgb 31.4 pg (27.0-31.0); Mean Corpuscular Volume 86.9 fL (80.0-94.0); Mean Platelet Volume 11.9 fL (7.4-10.4); Platelet Count 125 10^3/uL (130-400); Red Blood Cell Count 2.83 10^6/uL (4.70-6.10); Red Cell Dist. Width 13.2 % (11.5-14.5); White Blood Cell Count 11.9 10^3/uL (4.8-10.8)
[2024-04-08 05:42] LABS: Blood Urea Nitrogen 21 mg/dl (9-20); Calcium 8.4 mg/dl (8.4-10.2); Carbon Dioxide 23 mmol/L (22-30); Chloride 106 mmol/L (98-107); Estimated Creatinine Clearance 52 ml/min; Glucose 138 mg/dl (70-99); Magnesium 1.9 mg/dl (1.6-2.3); Potassium 5.1 mmol/L (3.5-5.1); Sodium 137 mmol/L (135-145); eGFR > 60.00
--- NOTE | 2024-04-08 05:44 | W.PN.CT ---
Addendum entered and electronically signed by Alo Johnson MD 04/08/24 06:29:
I saw and examined the patient.
The PA's note was reviewed and I agree with the note.
Comment:
Postop day 1 status post coronary bypass grafting x 4
Intermittent bradycardia overnight that resolved spontaneously, remains slightly bradycardic this morning with a heart rate in the 50s to 70s
Current blood pressure is 100/44 on Levophed
Wean Levophed as tolerated for maps greater than 60
Maintain chest tubes
DC Prado
Out of bed, I-S
Original Note:
Today's Communication / Plan
-
-pod #1
-intermittent brief bradycardia with hypotension - ? vasovagal- held BB (preop was on 12.5 mg of Toprol with ronni)
-drips: Levo 5, insulin
-drains output: meds 135/200, b/l pleur 80/200, RLE SHERIN 25/85 in 12/24 hrs
-labs pending
-wean off Levo, then deline
-d/c Prado
-continue insulin
-current meds (ASA, Plavix, Lipitor, Amio, Protonix). Held BB while on Levo
-encourage IS, OOB
Assessment / Plan
-
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
- Intraop CHAS: LVEF 55-60%, no RWMA, trace AI, trace MR
- HTN/HLD
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
- Pre-diabetes (HgA1c 6.1)
- Non-smoker
- Acute postop intermittent bradycardia mid 40s - ? vasovagal reaction
- Acute postop blood loss anemia - s/p 2pRBCs
- Acute postop thrombocytopenia
- Acute postop hypovolemia with subsequent hypervolemia
- Acute postop atelectasis
Discussed patient care with: Nursing and Care Team
Subjective
Procedure
- s/p CABG x 4 (MOI to LAD, GSV to OM1, GSV to LPL1, GSV to PDA) on 04/07/24
-
Date of Service: April 07, 2024
Objective Data
-
Lab Results
04/07/24 21:33
04/07/24 14:44
PT 21.4 Sec (11.4-14.6) H 04/07/24 14:44
INR 1.84 04/07/24 14:44
APTT 31.8 Sec (23.4-35.0) 04/07/24 14:44
Vital Signs
Vital Signs
Temp Pulse Resp BP Pulse Ox
99.1 F 73 18 107/70 100
04/07/24 20:00 04/07/24 22:30 04/07/24 22:30 04/07/24 22:30 04/07/24 22:30
CT Intake/Output/Weight
04/07/24 04/07/24 04/08/24
06:59 18:59 06:59
Intake Total 150 / 510 1227.8 / 1737.8 510 / 1737.8
Output Total 1520 / 2125 605 / 2125
Balance 150 / 510 -292.2 / -387.2 -95 / -387.2
SaO2: 100
Physical Exam
-
General: Awake and AOx3
Cardiovascular: Regular rate & rhythm, No Murmurs and No Rub
Respiratory: Decreased Breath Sounds
Sternum: Stable
Incision: Clean, Dry and Dressing Intact
Extremities: No Edema
Data Reviewed
-
Lab Results: Results Reviewed
Medications: Active Meds Reviewed
Chest X-Ray: Report Reviewed and Image Reviewed
ECG: Report Reviewed and Image Reviewed
--- NOTE | 2024-04-08 06:37 | PTCARENOTE ---
PT HR and BP more controlled but still mildly labile see worklist and vitals for trends
--- NOTE | 2024-04-08 07:00 | PTCARENOTE ---
Bedside walking rounds report received. Patient seen on rounds resting in bed: patient speaks limited Urdu ( Johnny dialect): video leno sewer readily accessible: daughter in room and speaks fluent Urdu availiable for translation for
patient requests. Denies pain. Denies nausea. HOB elevated. Levophed gtt maintained at 5mcg to maintain MAP > 65mmhg ABP's. Attempting to wean levophed as tolerated. NSR with pac's/ with pause rates 50's to 70's BBB. 2l nasal canula oxygen. IS to
500: needs encouragement. Chest tubes x 4 to -20cm wall suction (2meds and right and left pleural chest tubes) No significant 'dumping' or outputs. Prado catheter remains in place with hourly outputs. SHERIN drain right lower leg patent for
serosanguineous drainage. Palpable bilateral peripheral pulses.
--- NOTE | 2024-04-08 07:06 | W.PN.ANS.POP ---
Anesthesia Post Operative
- Anesthesia Post Op Note
Vital Signs Stable-See Nursing Note: Yes (Levophed @ 5 mcg/min)
Airway Patent: Yes
Adequate Pain Control: Yes
Change in Mental Status: No
Current Postoperative Nausea & Vomiting: No
Anesthesia Complications: No
General Anesthetic Recall: No
Unplanned Admission: No
Post Op Hydration Adequate: Yes
[2024-04-08 08:04] LABS: Glucose - Point of Care 146 mg/dl (70-99)
--- NOTE | 2024-04-08 08:32 | W.PN.INTV ---
Today's Communication / Plan
Recommendations
Up OOB as tolerated
Insulin drip per protocol maintaining BG 140�180
Cardiac rehab consult
Wean down supplemental oxygen keeping SpO2 >90-94%
Encourage incentive spirometer use 10x per hr for at least 4 hrs/day
Acquisition Manager services will continue to follow along while patient remains in the CVICU. Once weaned off of insulin drip and transferred to CVICU�telemetry status then we will sign off at that time.
Assessment
-
Assessment: 73-year-old male non-smoker with a past medical history of CAD, bifascicular block, hypertension and hypercholesterolemia who presented with chest pain. Chest pain has been ongoing for several months. It is relieved by rest and
worsening with exertion. Left heart catheterization performed on 04/01/2024 showed significant multivessel CAD with calcified coronary arteries and mildly elevated LVEDP at 14 mmHg. CAD involve the left main coronary artery with moderate�severe
mid�distal atherosclerotic plaque. Patient was initially admitted to the IVU with cardiothoracic surgery + cardiology consulted. TTE on 04/01/2024 showed preserved LVEF of 55-60% with normal RV size and function with no significant valvular
pathology. On 04/07/2024 he underwent CABG x 4 with no immediate complications. He was transferred to the CVICU with [address] (bilateral pleural + mediastinal x 2), and now chief clinical dietitian services consulted for additional
management/recommendations.
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
Impression:
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
#Acute anemia
#Thrombocytopenia
#Hypocalcemia - resolved
#Leukocytosis - likely reactive
#Bifascicular block
#Hypertension
#Hypercholesterolemia
#Right lower lobe nodules includin.4 x 1.5 x 1.6 cm nodule and 5mm x 3mm lateral RLL subplueral nodule
Plan:
Patient successfully extubated on 04/07/2024 to nasal cannula and is currently breathing comfortably on 3 L/min saturating 96%
Maintain SpO2 >90-94%
prn nebulized bronchodilators - not currently bronchospastic
Maintain MAP>65
Replete electrolytes with K>4, Mg>2
Monitor chest tube output (mediastinal chest tubes x 2+ left/right pleural chest tubes)
Monitor hemoglobin
Monitor platelet count and coags
Transfuse blood products as needed to maintain Hb>7g/dL, plt>50k (given post-operative status)
CT surgery managing chest tubes
Monitor blood sugar to maintain euglycemia with goal BG 140-180
Insulin drip per protocol - willl likely be on insulin gtt until tomorrow, at which point recommend using ISS either AC or q6hr to maintain BG goal as above
Aspiration precautions
DVT prophylaxis
Pain control
Encourgae incentive spirometer use 10x/hr for at least 4 hrs a day
Early nutrition
Early mobilization
He will need repeat CT chest for lung nodules seen in the right lower lobe. 1 nodule measures 1.4 cm x 1.5 cm x 1.6 cm, and another lateral subpleural RLL nodule measures 5 mm x 3 mm. If there are any prior imaging to compare to then that would be
very helpful. Otherwise we will repeat CT chest in 3 months to assess stability.
Acquisition Manager services will continue to follow along while patient remains in the CVICU. Once weaned off of insulin drip and transferred to CVICU�telemetry status then we will sign off at that time.
Critical care statement: A total of 38 minutes of critical care time was provided for this patient today. This includes management of ventilator, spontaneous breathing trial, arterial blood gases, pressors, of unstable vital signs, evaluation of the
patient at bedside, reviewing the patient's pertinent medical records including radiographs, microbiology, laboratory evaluations, and discussion with primary team and critical care nursing.
Data:
CXR 04/07/2024: New postoperative changes. No pneumothorax; Retrocardiac atelectasis.
CXR 04/08/2024: Right internal jugular venous catheter and bilateral chest drains in position. No pneumothorax; Low lung volumes. Partial opacification left base, probable minimal effusion and adjacent atelectasis.
CT chest without contrast 04/02/2024:
No significant calcification of the ascending aorta. There is dilation of the ascending aorta with short axis diameter of 4.1 cm at the level the right main pulmonary artery.
Nodular density within the posteromedial and inferior aspect of the right lower lobe of the lung. Morphologic appearance suggests that this is most likely an area of scarring, but neoplasia/malignancy cannot be excluded. See above discussion for
further evaluation recommendations.
Benign-appearing subpleural nodule within the posterolateral aspect of the right lower lobe.
Mild bilateral apical pleural parenchymal scarring, which has a benign appearance.
Mild fatty infiltration of the liver.
Subjective Dataa
Subjective Data
Date of Service:
Date of Service: April 08, 2024
Chief Complaint: Acquisition Manager Follow Up and Pulmonary Follow Up
Subjective:
Patient was seen and evaluated today at bedside. He was resting in bed in no acute distress, heart rate 82, BP 87/53 (via NIBP), 121/47 (via left radial A-line), HR 81 and saturating 96% on 3 L/min nasal cannula. Mediastinal chest tubes x 2+
left/right pleural chest tubes in place. Currently on insulin drip at 2.6 units/hr. Patient's daughter, Stacy, at bedside and all questions were answered. He denies shortness of breath or chest pain. Also denies MANZANARES, abdominal pain, nausea,
fevers or chills.
Review of Systems
General: Other (Negative unless mentioned above)
Objective Data
Data Reviewed
Vital Signs / I&O / Oxygen:
Vital Signs
Temp Pulse Resp BP Pulse Ox
98.9 F 52 18 114/64 100
04/08/24 07:51 04/08/24 08:45 04/08/24 08:45 04/08/24 08:00 04/08/24 08:45
Intake and Output
04/07/24 04/08/24 04/09/24
06:59 06:59 06:59
Intake Total 510 / 510 1737.8 / 1737.8 347.9 / 347.9
Output Total 2710 / 2710 190 / 190
Balance 510 / 510 -972.2 / -972.2 157.9 / 157.9
SaO2 [CPAP] 99
SaO2 [SIMV] 100
SaO2 100
Nasal Cannula flow liters per 2
minute
Physical Exam
General: Respiratory Distress (negative), Comfortable, Chills (negative) and Sweats (negative)
HEENT: Normocephalic and Anicteric
Cardiovascular: S1-S2 and Peripheral Edema (negative)
Respiratory: Wheeze (negative), Crackles (negative), Rhonchi (negative), Non-Labored Respirations and Chest Tube (Mediastinal chest tubes x 2+ left/right pleural chest tubes)
GI: Soft, Non Distended, Non Tender and Normal Bowel Sounds
Neurology: Awake, Alert and Tremors (negative)
Skin: Warm, Dry, Cyanosis (negative) and Jaundice (negative)
Labs/Micro/Reports
Lab Data
04/08/24 05:16
04/08/24 05:16
Laboratory Results
04/07/24 04/07/24
14:44 17:59
PT 21.4 H
INR 1.84
APTT 31.8
pH 7.35 7.36
pCO2 41 40
pO2 188 H 138 H
HCO3 22.6 22.6
O2 Delivery Level
[2024-04-08] MEDS: LEVOPHED 250 IV (08:50)
[2024-04-08 08:55] LABS: Glucose - Point of Care 124 mg/dl (70-99)
[2024-04-08] MEDS: PROTONIX 40 MG PO (08:57)
[2024-04-08] MEDS: BACTROBAN 2% OINTMENT 1 APPLIC NASAL ×2 (08:57→21:38)
[2024-04-08] MEDS: PACERONE 200 MG PO ×3 (08:58→21:39)
[2024-04-08] MEDS: MAGNESIUM OXIDE 500 MG PO ×2 (08:58→21:39)
[2024-04-08] MEDS: SENOKOT-S 1 TABLET PO ×2 (08:58→21:39)
[2024-04-08] MEDS: VITAMIN B-12 1000 MCG PO (08:58)
[2024-04-08] MEDS: LOW STRENGTH ASPIRIN 81 MG PO (08:58)
[2024-04-08] MEDS: PLAVIX 75 MG PO (08:59)
[2024-04-08] MEDS: NEURONTIN 100 MG PO ×3 (08:59→21:39)
[2024-04-08] MEDS: ALBUMIN 5% 250 IV ×3 (09:53→12:14)
[2024-04-08 10:05] LABS: Glucose - Point of Care 105 mg/dl (70-99)
[2024-04-08 11:19] LABS: Glucose - Point of Care 97 mg/dl (70-99)
--- NOTE | 2024-04-08 11:30 | PTCARENOTE ---
No acute changes. Levophed gtt weaned to off post 5% albumin infusion. Remains NSR with pac's/BBB less frequent pauses.
[2024-04-08 12:25] LABS: Glucose - Point of Care 139 mg/dl (70-99)
--- NOTE | 2024-04-08 13:03 | W.PN.CARDCBS ---
Addendum entered and electronically signed by Tima Villegas MD 04/08/24 15:53:
I saw and examined the patient.
The Delinquent Tax Collector's note was reviewed and I agree with the note.
Comment:
GEN: No distress, awake, Ox3
HEENT: supple, anicteric, mmm
LUNGS: CTA, no wheezes/rales
CV: Reg, S1/S2, no rub
ABD: soft, BS+, NT/ND
EXT: No edema
NEURO: Gross non-focal
SKIN: No rash
plan:
Continue to wean pressors. Remains in sinus rhythm.
Continue aspirin and Plavix.
Hemoglobin at 8.9 with mild thrombocytopenia at 120,000. Continue to follow lab counts.
Continue metoprolol and atorvastatin.
Original Note:
Today's Communication / Plan
-
wean levo
follow BP/HRs
continue asa, plavix
Impression / Plan
-
PCP: Dr. Robledo
Esthetician Spa: Dr. Mcadams
Impression:
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
CAD s/p CABG with MOI to LAD, vein graft to OM-1 and LPL 1, vein graft to PDA 04/07/24
HTN
HLD
RBBB
Acute blood loss anemia
LHC 04/01/2024: Left main: Moderate to severe mid to distal atherosclerotic plaque with significant pressure wave dampening and ventricularization with a 6 [place] diagnostic catheter. LAD: 100% chronic total occlusion of the proximal portion with
left to left and right to left collaterals. 80 to 85% distal LAD stenosis. LCx: Aneurysmal dilation at the ostium with a 50 to 60% proximal left circumflex stenosis. 40% mid left circumflex stenosis and otherwise mild diffuse atherosclerotic
plaque. OM1 is a medium caliber vessel with an 80% ostial stenosis and a second 70% lesion proximally. OM 2 is a small caliber vessel with 85 to 90% proximal stenosis diffusely. Left posterolateral branch has an upper and lower branch which are
both medium in caliber. Ostium to proximal portion of the vessel has a diffuse up to 70% stenosis involving both branches. RCA: Serial 70% stenoses in the proximal to midportion. Otherwise there is diffuse moderate atherosclerotic plaque. RPDA
has 2 serial 70% stenoses.
Echo 04/01/2024: EF 55 to 60%, aortic sclerosis, trace AI, mild MAC with trace MR, trace TR, estimated PAP 20 mmHg
CHAS 04/07/2024: Postop EF 55 to 60%
Plan:
-s/p CABG with MOI to LAD, vein graft to OM-1 and LPL 1, vein graft to PDA 04/07/24
-remains on levo @1, wean as able
-review of tele with multiple brief episodes of sinus bradycardia however quickly resolve. receiving amiodarone, BB on hold at present given hypotension and transient ronni
-continue asa, plavix. hgb 8.9
-continue lipitor
-OOB/IS as able
-was on bisoprolol/HCTZ and telmisartan/amlodipine prior to admission. will determine anti-HTN regimen for DC
-d/w family at bedside
HPI: Patient was referred for elective LHC on 04/01/24 by the [facility]. Patient reported that he had previously been recommended CABG in [place] in about 2019. Cardiac cath revealed MV CAD and patient was recommended admission
due to symptoms and severity of CAD.
Progress Note - Esthetician Spa
Subjective
Date of Service: April 08, 2024
reports some post op pain and SOB
Objective
Labs:
04/08/24 05:16
04/08/24 05:16
Labs
Hgb 8.9 g/dL (13.0-18.0) L 04/08/24 05:16
Hct 24.6 % (39.0-52.0) L 04/08/24 05:16
Plt Count 125 10^3/uL (130-400) L 04/08/24 05:16
PT 21.4 Sec (11.4-14.6) H 04/07/24 14:44
INR 1.84 04/07/24 14:44
APTT 31.8 Sec (23.4-35.0) 04/07/24 14:44
Sodium 137 mmol/L (135-145) 04/08/24 05:16
Potassium 5.1 mmol/L (3.5-5.1) 04/08/24 05:16
BUN 21 mg/dl (9-20) H 04/08/24 05:16
Creatinine 1.2 mg/dL (0.7-1.3) 04/08/24 05:16
Glucose 138 mg/dl (70-99) H 04/08/24 05:16
Vital Signs and I&O:
Vital Signs
Temp Pulse Resp BP Pulse Ox
99 F 75 22 109/66 98
04/08/24 12:20 04/08/24 12:20 04/08/24 12:20 04/08/24 11:28 04/08/24 12:20
Vital Signs
Temp Pulse Resp BP Pulse Ox
99 F 75 22 109/66 98
04/08/24 12:20 04/08/24 12:20 04/08/24 12:20 04/08/24 11:28 04/08/24 12:20
Intake & Output
04/06/24 04/07/24 04/08/24 04/09/24
07:59 07:59 07:59 07:59
Intake Total 240 / 600 510 / 510 1943.4 / 1943.4 1509.0 / 1509.0
Output Total 2840 / 2840 240 / 240
Balance 240 / 600 510 / 510 -896.6 / -896.6 1269.0 / 1269.0
Physical Exam
Physical Exam
GEN: No distress, awake, alert, oriented x3
HEENT: supple, anicteric, mmm, eomi
LUNGS: Decreased BS B/L, no wheezes
CV: Reg, S1/S2, no murmur
EXT: No cyanosis, clubbing, edema. oneyda wrap to RLE
NEURO: Gross non-focal
SKIN: Warm, pink, dry. No rash. sternotomy with aquacel dressing c/d/i
[2024-04-08] MEDS: NSS IV (13:30)
[2024-04-08] MEDS: ProAmatine 10 MG PO ×2 (14:16→17:39)
--- NOTE | 2024-04-08 14:20 | PTCARENOTE ---
Turned side to side: held on each side for 1 minute: chest tubes x 4 without significant drainage or 'dumping. Reinforced hourly use of IS. Midodrine given po and levophed weaned to off.
[2024-04-08 14:25] LABS: Glucose - Point of Care 132 mg/dl (70-99)
--- NOTE | 2024-04-08 15:15 | PTCARENOTE ---
Levophed gtt remains off. MAP's Right arm NIBP and ABP's <65mmhg and Dee ct FABRICATION AND ASSEMBLY SUPERVISOR aware: left arm NIBP rechecked left arm and map was 57. Will leave levo gtt off.
--- NOTE | 2024-04-08 16:45 | CM ---
spoke with pt and daughter in room, henny sterling for dc planning.
[2024-04-08 16:50] LABS: Glucose - Point of Care 81 mg/dl (70-99)
--- NOTE | 2024-04-08 17:00 | PTCARENOTE ---
Assisted oob to chair with moderate assist of 2 nurses. No significant outputs noted . Room air.
[2024-04-08] MEDS: LIPITOR 80 MG PO (17:39)
[2024-04-08 18:40] LABS: Glucose - Point of Care 77 mg/dl (70-99)
--- NOTE | 2024-04-08 21:30 | PTCARENOTE ---
Patient received OOB in chair. Patient assisted to bed with assist x2. Patient's daughter at bedside. If needed, Patient's daughter will interpret for patient. No s/s of respiratory distress. O2 2L via NC. SpO2 95%. Four chest tubes -
Mediastinal x2 and Right and Left Pleural - Intact and patent - No air leak, tidaling or crepitus noted. Chest tube dressing intact. Sinus Rhythm. BBC. Heart rate 70-80's. Patient with no c/o chest pain, pressure or discomfort. Normoactive
bowel sounds. No BM. No c/o nausea. No vomiting. Prado catheter - Temperature sensing - Yellow urine - Outputs as documented. Generalized edema. RLE >edema. Positive pulses. Right I.J. Cordis with [place] catheter. Left radial arterial line.
CVP 6-7. Sternal Aquacell dressing intact. Right groin intact. Right lower extremity incision intact - Open to air. Right lower extremity with Jose Armando-Medina drain - 10 ml red drainage. Assessment as documented.
[2024-04-08] MEDS: SODIUM BICARBONATE 50 MEQ IV (21:39)
[2024-04-08] MEDS: NSS 500 IV (22:00)
[2024-04-08 22:15] LABS: Glucose - Point of Care 108 mg/dl (70-99)
[2024-04-09] VITALS (34 sets, daily range): BP systolic 87–149; BP diastolic 45–77; PULSE 86; O2SAT 94; BMI 26.5
--- NOTE | 2024-04-09 00:30 | PTCARENOTE ---
Patient sleeping without difficulty. patient's daughter sleeping in room. Assessment as documented.
[2024-04-09 05:50] LABS: Ionized Calcium 1.11 mMOL/L (1.15-1.33)
[2024-04-09] MEDS: TYLENOL 1000 MG PO ×2 (05:51→13:14)
[2024-04-09] MEDS: ROXICODONE 2.5 MG PO (05:52)
--- NOTE | 2024-04-09 06:00 | PTCARENOTE ---
Patient resting in bed. Patient's daughter at bedside. AM lab work collected and sent. Roxicodone 2.5 mg PO for pain management. Assessment/Interventions as documented.
[2024-04-09 06:22] LABS: Blood Urea Nitrogen 25 mg/dl (9-20); Calcium 7.9 mg/dl (8.4-10.2); Carbon Dioxide 28 mmol/L (22-30); Chloride 104 mmol/L (98-107); Estimated Creatinine Clearance 63 ml/min; Glucose 115 mg/dl (70-99); Hematocrit 20.2 % (39.0-52.0); Hemoglobin 7.2 g/dL (13.0-18.0); Mean Corp Hgb Conc. 35.6 g/dL (33.0-37.0); Mean Corpuscular Hgb 32.1 pg (27.0-31.0); Mean Corpuscular Volume 90.2 fL (80.0-94.0); Mean Platelet Volume 12.4 fL (7.4-10.4); Platelet Count 93 10^3/uL (130-400); Potassium 4.2 mmol/L (3.5-5.1); Red Blood Cell Count 2.24 10^6/uL (4.70-6.10); Red Cell Dist. Width 13.4 % (11.5-14.5); Sodium 139 mmol/L (135-145); White Blood Cell Count 8.6 10^3/uL (4.8-10.8); eGFR > 60.00
--- NOTE | 2024-04-09 07:32 | PTCARENOTE ---
Pt received from outgoing RN, pt in bed resting, 2lnc, VSS, off levo, lt radial lisa, Rt IJ cordis slick with CVP monitoring, CT x4, Rt LLE Jpdrain, incision CDI, oob as tolerated, pain management.
[2024-04-09] MEDS: CALCIUM CHLORIDE 10% SYRINGE 50 MG IV (07:52)
[2024-04-09] MEDS: CALCIUM CHLORIDE 10% SYRINGE 50 ML IV (07:52)
[2024-04-09 07:59] LABS: Glucose - Point of Care 138 mg/dl (70-99)
--- NOTE | 2024-04-09 08:10 | W.PN.CT ---
Today's Communication / Plan
-
-No major issues overnight. Hemodynamically and neurologically intact
-Postop intermittent brief bradycardia with hypotension, BB currently on hold. Tolerating Amiodarone
-Off all drips. Levophed has been weaned off. Currently on Midodrine, should be able to discontinue today after transfusion
-H/H 7.2/20.2, was 8.9/24.6 yesterday
-Plts on the decline, 93K today, down from 125K. Currently on ASA and Plavix, may need to hold if Plts continues to drop
-Consider d/c of chest tubes: 2meds 70/245, Pleurals 35/200
-Pt's auto-diuresis is improving, ? postop diabetes insipidus. Last 24hrs u/o 1120
-Will replete electrolytes
-Encourage use of IS
-OOB into chair
Assessment / Plan
-
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
- Intraop CHAS: LVEF 55-60%, no RWMA, trace AI, trace MR
- HTN/HLD
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
- Pre-diabetes (HgA1c 6.1)
- Non-smoker
- Acute postop intermittent bradycardia mid 40s - ? vasovagal reaction
- Acute postop blood loss anemia - s/p 2pRBCs
- Acute postop thrombocytopenia
- Acute postop hypovolemia with subsequent hypervolemia
- Acute postop atelectasis
Discussed patient care with: Cardiology, Nursing, Respiratory Therapy, Pharmacy and Care Team
Subjective
Procedure
- s/p CABG x 4 (MOI to LAD, GSV to OM1, GSV to LPL1, GSV to PDA) on 04/07/24
-
Date of Service: April 09, 2024
Pt c/o incisional pain, otherwise feels well
Objective Data
-
Lab Results
04/09/24 05:38
04/09/24 05:38
PT 21.4 Sec (11.4-14.6) H 04/07/24 14:44
INR 1.84 04/07/24 14:44
APTT 31.8 Sec (23.4-35.0) 04/07/24 14:44
Vital Signs
Vital Signs
Temp Pulse Resp BP Pulse Ox
98.9 F 76 18 103/55 96
04/09/24 05:24 04/09/24 06:15 04/09/24 05:45 04/09/24 06:00 04/09/24 07:38
CT Intake/Output/Weight
04/08/24 04/09/24 04/09/24
18:59 06:59 18:59
Intake Total 2158.6 / 2763.6 605 / 2763.6
Output Total 1045 / 1710 665 / 1710
Balance 1113.6 / 1053.6 -60 / 1053.6
SaO2: 96 (2L)
Physical Exam
-
General: Awake, Oriented and AOx3
Cardiovascular: Regular rate & rhythm, No Murmurs, No Rub and Gallop
Respiratory: Decreased Breath Sounds
Sternum: Stable
Incision: Clean, Dry, Intact and Dressing Intact
Extremities: No Edema
Data Reviewed
-
Lab Results: Results Reviewed
Medications: Active Meds Reviewed
Chest X-Ray: Report Reviewed and Image Reviewed
ECG: Report Reviewed and Image Reviewed
--- NOTE | 2024-04-09 08:41 | W.PN.INTV ---
Today's Communication / Plan
Recommendations
Up OOB as tolerated
Maintain BG 140�180
Cardiac rehab consult
Wean down supplemental oxygen keeping SpO2 >90-94%
Encourage incentive spirometer use 10x per hr for at least 4 hrs/day
Antiemetics as needed
Transfuse to keep Hb>7, plt>50k (given post-operative status)
Outpatient follow up with repeat CT chest to assure RLL nodules are stable
Patient is now downgraded to CVICU�telemetry status. Microstrategy Reports Developer/Pulmonary service will now sign off. Please reconsult if there are any additional questions/concerns, or if patient's respiratory status deteriorates.
Assessment
-
Assessment: 73-year-old male non-smoker with a past medical history of CAD, bifascicular block, hypertension and hypercholesterolemia who presented with chest pain. Chest pain has been ongoing for several months. It is relieved by rest and
worsening with exertion. Left heart catheterization performed on 04/01/2024 showed significant multivessel CAD with calcified coronary arteries and mildly elevated LVEDP at 14 mmHg. CAD involve the left main coronary artery with moderate�severe
mid�distal atherosclerotic plaque. Patient was initially admitted to the IVU with cardiothoracic surgery + cardiology consulted. TTE on 04/01/2024 showed preserved LVEF of 55-60% with normal RV size and function with no significant valvular
pathology. On 04/07/2024 he underwent CABG x 4 with no immediate complications. He was transferred to the CVICU with [address] (bilateral pleural + mediastinal x 2), and now assistant store manager operations services consulted for additional
management/recommendations.
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
Impression:
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
#Acute anemia
#Thrombocytopenia
#Hypocalcemia - resolved
#Leukocytosis - likely reactive
#Bifascicular block
#Hypertension
#Hypercholesterolemia
#Right lower lobe nodules includin.4 x 1.5 x 1.6 cm nodule and 5mm x 3mm lateral RLL subplueral nodule
Plan:
Patient successfully extubated on 04/07/2024 to nasal cannula and is currently breathing comfortably on 3 L/min saturating 96%
Wean down supplemental O2 flow to maintain SpO2 >90-94%
prn nebulized bronchodilators - not currently bronchospastic
Maintain MAP>65
Replete electrolytes with K>4, Mg>2
Monitor chest tube output (mediastinal chest tubes x 2+ left/right pleural chest tubes) --> to be removed today
Monitor hemoglobin
Monitor platelet count and coags
Transfuse blood products as needed to maintain Hb>7g/dL, plt>50k (given post-operative status)
- Received 1 unit PRBC this morning; otherwise received 2 units PRBC on 04/07
CT surgery managing chest tubes
Monitor blood sugar to maintain euglycemia with goal BG 140-180
Insulin drip per protocol - now off gtt. Recommend using ISS either AC or q6hr to maintain BG goal as above
Aspiration precautions
DVT prophylaxis
Pain control
Encourage incentive spirometer use 10x/hr for at least 4 hrs a day
Early nutrition
Early mobilization
He will need repeat CT chest for lung nodules seen in the right lower lobe. 1 nodule measures 1.4 cm x 1.5 cm x 1.6 cm, and another lateral subpleural RLL nodule measures 5 mm x 3 mm. If there are any prior imaging to compare to then that would be
very helpful. Otherwise we will repeat CT chest in 3 months to assess stability.
Patient is now downgraded to CVICU�telemetry status. Microstrategy Reports Developer/Pulmonary service will now sign off. Thank you for allowing us to be involved in the care of this patient. Please reconsult if there are any additional questions/concerns, or if
patient's respiratory status deteriorates.
Data:
CXR 04/07/2024: New postoperative changes. No pneumothorax; Retrocardiac atelectasis.
CXR 04/08/2024: Right internal jugular venous catheter and bilateral chest drains in position. No pneumothorax; Low lung volumes. Partial opacification left base, probable minimal effusion and adjacent atelectasis.
CXR 04/09/2024: Stable postoperative changes with atelectasis at the retrocardiac left lung base; No pneumothorax
CT chest without contrast 04/02/2024:
No significant calcification of the ascending aorta. There is dilation of the ascending aorta with short axis diameter of 4.1 cm at the level the right main pulmonary artery.
Nodular density within the posteromedial and inferior aspect of the right lower lobe of the lung. Morphologic appearance suggests that this is most likely an area of scarring, but neoplasia/malignancy cannot be excluded. See above discussion for
further evaluation recommendations.
Benign-appearing subpleural nodule within the posterolateral aspect of the right lower lobe.
Mild bilateral apical pleural parenchymal scarring, which has a benign appearance.
Mild fatty infiltration of the liver.
Total time spent today was 75 minutes for this encounter. Time includes reviewing laboratory test/imaging results, reviewing pertinent medical records, obtaining and reviewing medical history, performing an appropriate exam, ordering medications,
tests and procedures. Time also includes documentation of this encounter, coordinating patient care and communicating with other healthcare professionals. Total time does not include separately billed tests performed on this date of service.
Subjective Dataa
Subjective Data
Date of Service:
Date of Service: April 09, 2024
Chief Complaint: Microstrategy Reports Developer Follow Up and Pulmonary Follow Up
Subjective:
Patient was seen and evaluated today at bedside with daughter, Stacy, at bedside. All questions were answered. Patient currently on 2 L/min nasal cannula saturating 95%, heart rate 74 and BP 114/48. R�IJ cordis in place. Hb this morning was 7.2
and 1 unit PRBC was transfused. No active bleeding seen at bedside. Patient had chest pain overnight and was given pain medications with resultant nausea/vomiting. He denies any nausea currently and his chest pain is controlled. He also denies
shortness of breath, MANZANARES, abdominal pain, fevers or chills.
Review of Systems
General: Other (Negative unless mentioned above)
Objective Data
Data Reviewed
Vital Signs / I&O / Oxygen:
Vital Signs
Temp Pulse Resp BP Pulse Ox
98.2 F 86 24 113/65 96
04/09/24 08:00 04/09/24 09:00 04/09/24 09:00 04/09/24 09:00 04/09/24 08:16
Intake and Output
04/08/24 04/09/24 04/10/24
06:59 06:59 06:59
Intake Total 1737.8 / 1737.8 2763.6 / 2763.6 40 / 40
Output Total 2710 / 2710 1710 / 1710 130 / 130
Balance -972.2 / -972.2 1053.6 / 1053.6 -90 / -90
SaO2 [CPAP] 99
SaO2 [SIMV] 100
SaO2 96
Nasal Cannula flow liters per 2
minute
Physical Exam
General: Respiratory Distress (negative), Comfortable, Chills (negative) and Sweats (negative)
HEENT: Normocephalic, Anicteric and Other (R-IJ cordis in place)
Cardiovascular: S1-S2 and Peripheral Edema (negative)
Respiratory: Wheeze (negative), Crackles (negative), Rhonchi (negative), Non-Labored Respirations and Chest Tube (Mediastinal chest tubes x 2+ left/right pleural chest tubes)
GI: Soft, Non Distended, Non Tender and Normal Bowel Sounds
Neurology: Awake, Alert and Tremors (negative)
Skin: Warm, Dry, Cyanosis (negative) and Jaundice (negative)
Labs/Micro/Reports
Lab Data
04/09/24 05:38
04/09/24 05:38
[2024-04-09] MEDS: PLAVIX 75 MG PO (09:00)
[2024-04-09] MEDS: PROTONIX 40 MG PO (09:00)
[2024-04-09] MEDS: NEURONTIN 100 MG PO ×2 (09:00→17:01)
[2024-04-09] MEDS: VITAMIN B-12 1000 MCG PO (09:00)
[2024-04-09] MEDS: MAGNESIUM OXIDE 500 MG PO (09:00)
[2024-04-09] MEDS: ProAmatine 10 MG PO ×3 (09:01→17:01)
[2024-04-09] MEDS: PACERONE 200 MG PO ×2 (09:01→17:01)
[2024-04-09] MEDS: LOW STRENGTH ASPIRIN 81 MG PO (09:01)
[2024-04-09] MEDS: SENOKOT-S 1 TABLET PO (09:02)
[2024-04-09] MEDS: BACTROBAN 2% OINTMENT 1 APPLIC NASAL ×2 (09:02→21:18)
[2024-04-09] MEDS: ZOFRAN 4 MG IV ×2 (09:32→21:31)
--- NOTE | 2024-04-09 10:52 | W.PN.CARDCBS ---
Today's Communication / Plan
-
Remains in sinus rhythm. Continue amiodarone.
Hemoglobin down to 7.2. Consider transfusion. Continue aspirin and Plavix.
Blood pressure currently stable. Holding off on beta-raheem because of some brief bradycardia.
Impression / Plan
-
PCP: Dr. Robledo
Glass Blower: Dr. Mcadams
Impression:
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
CAD s/p CABG with MOI to LAD, vein graft to OM-1 and LPL 1, vein graft to PDA 04/07/24
HTN
HLD
RBBB
Acute blood loss anemia
LHC 04/01/2024: Left main: Moderate to severe mid to distal atherosclerotic plaque with significant pressure wave dampening and ventricularization with a 6 [place] diagnostic catheter. LAD: 100% chronic total occlusion of the proximal portion with
left to left and right to left collaterals. 80 to 85% distal LAD stenosis. LCx: Aneurysmal dilation at the ostium with a 50 to 60% proximal left circumflex stenosis. 40% mid left circumflex stenosis and otherwise mild diffuse atherosclerotic
plaque. OM1 is a medium caliber vessel with an 80% ostial stenosis and a second 70% lesion proximally. OM 2 is a small caliber vessel with 85 to 90% proximal stenosis diffusely. Left posterolateral branch has an upper and lower branch which are
both medium in caliber. Ostium to proximal portion of the vessel has a diffuse up to 70% stenosis involving both branches. RCA: Serial 70% stenoses in the proximal to midportion. Otherwise there is diffuse moderate atherosclerotic plaque. RPDA
has 2 serial 70% stenoses.
Echo 04/01/2024: EF 55 to 60%, aortic sclerosis, trace AI, mild MAC with trace MR, trace TR, estimated PAP 20 mmHg
CHAS 04/07/2024: Postop EF 55 to 60%
Plan:
-s/p CABG with MOI to LAD, vein graft to OM-1 and LPL 1, vein graft to PDA 04/07/24
-Currently off pressors.
-Continue amiodarone.
-Metoprolol on hold at present given hypotension and transient ronni
-continue asa, plavix. Hemoglobin down to 7.2. Consider transfusion.
-continue lipitor
-OOB/IS as able
-was on bisoprolol/HCTZ and telmisartan/amlodipine prior to admission. will determine anti-HTN regimen for DC
HPI: Patient was referred for elective LHC on 04/01/24 by the [facility]. Patient reported that he had previously been recommended CABG in [place] in about 2019. Cardiac cath revealed MV CAD and patient was recommended admission
due to symptoms and severity of CAD.
Progress Note - Glass Blower
Subjective
Date of Service: April 09, 2024
Denies any chest pains. Remains in sinus rhythm.
Objective
Labs:
04/09/24 05:38
Labs
Hgb 7.2 g/dL (13.0-18.0) L 04/09/24 05:38
Hct 20.2 % (39.0-52.0) L* 04/09/24 05:38
Plt Count 93 10^3/uL (130-400) L D 04/09/24 05:38
PT 21.4 Sec (11.4-14.6) H 04/07/24 14:44
INR 1.84 04/07/24 14:44
APTT 31.8 Sec (23.4-35.0) 04/07/24 14:44
Sodium 139 mmol/L (135-145) 04/09/24 05:38
Potassium 4.2 mmol/L (3.5-5.1) 04/09/24 05:38
BUN 25 mg/dl (9-20) H 04/09/24 05:38
Creatinine 1.0 mg/dL (0.7-1.3) 04/09/24 05:38
Glucose 115 mg/dl (70-99) H 04/09/24 05:38
Vital Signs and I&O:
Vital Signs
Temp Pulse Resp BP Pulse Ox
98.2 F 91 24 112/68 92
04/09/24 08:00 04/09/24 10:15 04/09/24 10:15 04/09/24 10:15 04/09/24 10:15
Vital Signs
Temp Pulse Resp BP Pulse Ox
98.2 F 91 24 112/68 92
04/09/24 08:00 04/09/24 10:15 04/09/24 10:15 04/09/24 10:15 04/09/24 10:15
Intake & Output
04/07/24 04/08/24 04/09/24 04/10/24
06:59 06:59 06:59 06:59
Intake Total 510 / 510 1737.8 / 1737.8 2763.6 / 2763.6 60 / 60
Output Total 2710 / 2710 1710 / 1710 180 / 180
Balance 510 / 510 -972.2 / -972.2 1053.6 / 1053.6 -120 / -120
Physical Exam
Physical Exam
GEN: No distress, awake, Ox3
HEENT: supple, anicteric, mmm
LUNGS: CTA, no wheezes/rales
CV: Reg, S1/S2, 1/6 syst LSB, no gallop
ABD: soft, BS+, NT/ND
EXT: No edema
NEURO: Gross non-focal
SKIN: sternotomy
[2024-04-09] MEDS: LASIX 40 MG IV (11:47)
[2024-04-09] MEDS: FLEXBUMIN 50 IV (11:47)
[2024-04-09 13:12] LABS: Glucose - Point of Care 175 mg/dl (70-99)
[2024-04-09 13:12] LABS: Hematocrit 24.1 % (39.0-52.0); Hemoglobin 8.4 g/dL (13.0-18.0); Mean Corp Hgb Conc. 34.9 g/dL (33.0-37.0); Mean Corpuscular Hgb 30.8 pg (27.0-31.0); Mean Corpuscular Volume 88.3 fL (80.0-94.0); Mean Platelet Volume 11.8 fL (7.4-10.4); Platelet Count 116 10^3/uL (130-400); Red Blood Cell Count 2.73 10^6/uL (4.70-6.10); Red Cell Dist. Width 13.6 % (11.5-14.5); White Blood Cell Count 9.9 10^3/uL (4.8-10.8)
[2024-04-09] MEDS: ROXICODONE 5 MG PO (13:13)
--- NOTE | 2024-04-09 13:20 | PTCARENOTE ---
pt reassessment unchanged from previous, vss, 2lnc, CT x4 dced, lisa dced, watson dced, rt IJ slick dced, 1 unit prbc, cbc sp prbc, hgb 7.2--->8.4. Pain management with oxy,acetaminophen, gabapentin, OOb to chair, IV lasix 40 x1, albumin 12.5g x1.
--- NOTE | 2024-04-09 15:09 | PTCARENOTE ---
pt reassessment unchanged from previous, vss, oob in a chair, 2lnc, pain management, pt refusing to take oral medications, RN continue to reinforced the importance of medications regime post op. Pt daughter at bedside, RN educated pt and daughter.
Rt Ij cordis, PIV.
[2024-04-09] MEDS: LIPITOR 80 MG PO (17:01)
[2024-04-09 17:04] LABS: Glucose - Point of Care 139 mg/dl (70-99)
[2024-04-09] MEDS: SENOKOT-S PO (21:19)
[2024-04-09] MEDS: TYLENOL PO (21:19)
[2024-04-09] MEDS: NEURONTIN PO (21:19)
[2024-04-09] MEDS: PACERONE PO ×2 (21:30→22:34)
[2024-04-09] MEDS: MAGNESIUM OXIDE PO ×2 (21:30→22:33)
[2024-04-09] MEDS: ROXICODONE PO (21:30)
[2024-04-09 21:52] LABS: Glucose - Point of Care 150 mg/dl (70-99)
[2024-04-09] MEDS: CALCIUM CHLORIDE 10% SYRINGE 60 MG IV (21:54)
--- NOTE | 2024-04-09 22:00 | PTCARENOTE ---
Patient received OOB in chair. Dozing intermittently. Patient A+A+Ox3. No neurological deficits noted. Patient did not want his dinner. O2 2L - SpO2 97%. Sinus Rhythm with BBC. Heart rate 60-70's. Blood pressure 124/75 (89). Hypoactive to
normoactive bowel sounds. No BM. c/o nausea. Refusing his pills/medication. Patient c/o sternal pain/discomfort. Patient agreed to take pain pill (Roxicodone 5 mg PO), Magnesium 500 mg PO and Amiodarone 200 mg PO. Daughter at bedside
encouraging him to take his medicine. Patient then began to vomit 50 ml clear to whitish thick secretions. Zofran 4 mg IV administered. Patient with 50 ml yellowish, liquidity emesis. Patient with moderate relief from nausea - No more vomiting -
Refused pills. Patient assisted from chair to bed without difficulty. Accu-check 150. Voided 400 ml yellow urine. Right I.J. Cordis. Sternal dressing intact. Chest tube dressing intact. Right groin puncture site. Right knee incision intact.
RLE s/p SHERIN drain - Intact. Patient with no c/o back or flank pain. Assessment as documented.
[2024-04-09] MEDS: REGLAN 10 MG IV (23:15)
--- NOTE | 2024-04-09 23:30 | PTCARENOTE ---
Per PA order - Calcium chloride 1,000mg/60ml IV over 1hr given. Patient resting in bed. Reglan 10mg IV administered per PA order. Patient's daughter at bedside. Assessment as documented.
[2024-04-10] VITALS (9 sets, daily range): BP systolic 102–137; BP diastolic 59–78; BMI 25.5
--- NOTE | 2024-04-10 01:00 | PTCARENOTE ---
Patient sleeping without difficulty. Patient's daughter sleeping in room. No further c/o nausea. No vomiting. Assessment/Interventions as documented.
[2024-04-10] MEDS: NSS 500 IV (04:00)
[2024-04-10 04:34] LABS: Hematocrit 23.4 % (39.0-52.0); Hemoglobin 8.2 g/dL (13.0-18.0); Mean Corpuscular Hgb 31.9 pg (27.0-31.0); Mean Corpuscular Volume 91.1 fL (80.0-94.0); Mean Platelet Volume 11.9 fL (7.4-10.4); Platelet Count 111 10^3/uL (130-400); Red Blood Cell Count 2.57 10^6/uL (4.70-6.10); Red Cell Dist. Width 13.5 % (11.5-14.5); White Blood Cell Count 5.9 10^3/uL (4.8-10.8)
--- NOTE | 2024-04-10 05:00 | PTCARENOTE ---
Patient A+A+Ox3. No neurological deficits noted. AM lab work collected and sent. Patient given CHG bath and linens changed. Chest tube dressing changed - Chest tube sutures intact. Patient back to sleep. Assessment/Interventions as documented.
[2024-04-10 05:02] LABS: Blood Urea Nitrogen 28 mg/dl (9-20); Calcium 8.5 mg/dl (8.4-10.2); Carbon Dioxide 33 mmol/L (22-30); Chloride 100 mmol/L (98-107); Estimated Creatinine Clearance 63 ml/min; Glucose 116 mg/dl (70-99); Magnesium 1.9 mg/dl (1.6-2.3); Sodium 139 mmol/L (135-145); eGFR > 60.00
--- NOTE | 2024-04-10 05:34 | W.PN.CT ---
Today's Communication / Plan
-
-No major issues overnight. Hemodynamically and neurologically intact
-Postop intermittent brief bradycardia with hypotension, BB currently on hold. Tolerating Amiodarone
-Off all drips. Midodrine transitioned to PRN. BP has improved
-D/C cordis
-H/H 8.3/23.4 after 1u PRBC yesterday for h/h of 7.2/20.2 yesterday
-Plts improved 93K->111K. Currently on ASA and Plavix
-Encourage use of IS
-OOB into chair
-Home in 1-2 days
Assessment / Plan
-
- MVCAD including LIBRARY PARAPROFESSIONAL of LAD - s/p CABG x 4 (MOI to LAD, GSV to OM1, GSV to LPL1, GSV to PDA) on 04/07/24, pod #3
- Intraop CHAS: LVEF 55-60%, no RWMA, trace AI, trace MR
- HTN/HLD
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
- Pre-diabetes (HgA1c 6.1)
- Non-smoker
- Acute postop intermittent bradycardia mid 40s - ? vasovagal reaction
- Acute postop blood loss anemia - s/p 2pRBCs
- Acute postop thrombocytopenia
- Acute postop hypovolemia with subsequent hypervolemia
- Acute postop atelectasis
Discussed patient care with: Cardiology, Nursing, Respiratory Therapy, Pharmacy and Care Team
Subjective
Procedure
- s/p CABG x 4 (MOI to LAD, GSV to OM1, GSV to LPL1, GSV to PDA) on 04/07/24
-
Date of Service: April 10, 2024
Pt c/o nausea last night, received both zofran and reglan, better this AM
Objective Data
-
Lab Results
04/10/24 04:22
04/10/24 04:22
PT 21.4 Sec (11.4-14.6) H 04/07/24 14:44
INR 1.84 04/07/24 14:44
APTT 31.8 Sec (23.4-35.0) 04/07/24 14:44
Vital Signs
Vital Signs
Temp Pulse Resp BP Pulse Ox
98.4 F 75 16 120/64 95
04/10/24 04:00 04/10/24 04:00 04/10/24 04:00 04/10/24 04:00 04/10/24 04:00
CT Intake/Output/Weight
04/09/24 04/09/24 04/10/24
06:59 18:59 06:59
Intake Total 605 / 2763.6 100 / 200 100 / 200
Output Total 665 / 1710 2285 / 2785 500 / 2785
Balance -60 / 1053.6 -2185 / -2585 -400 / -2585
SaO2: 95 (2L)
Physical Exam
-
General: Awake, Oriented and AOx3
Cardiovascular: Regular rate & rhythm, No Murmurs, No Rub and No Gallop
Respiratory: Decreased Breath Sounds (at bases, otherwise clear)
Sternum: Stable
Incision: Clean, Dry, Intact and Dressing Intact
Extremities: Other (+trace edema)
Data Reviewed
-
Lab Results: Results Reviewed
Medications: Active Meds Reviewed
Chest X-Ray: Report Reviewed and Image Reviewed
ECG: Report Reviewed and Image Reviewed
[2024-04-10] MEDS: TYLENOL PO ×3 (05:53→21:18)
[2024-04-10] MEDS: FLEXERIL 5 MG PO (08:14)
[2024-04-10] MEDS: PLAVIX 75 MG PO (08:14)
[2024-04-10] MEDS: LOW STRENGTH ASPIRIN 81 MG PO (08:14)
[2024-04-10] MEDS: PACERONE 200 MG PO ×3 (08:14→21:18)
[2024-04-10] MEDS: PROTONIX 40 MG PO (08:14)
[2024-04-10] MEDS: CALCIUM CHLORIDE 10% SYRINGE 60 MG IV (08:14)
[2024-04-10] MEDS: NEURONTIN PO ×3 (08:49→21:18)
[2024-04-10] MEDS: BACTROBAN 2% OINTMENT 1 APPLIC NASAL ×2 (08:49→21:18)
[2024-04-10] MEDS: MAGNESIUM OXIDE PO (08:49)
[2024-04-10] MEDS: VITAMIN B-12 PO (08:50)
[2024-04-10] MEDS: SENOKOT-S PO ×2 (08:50→21:18)
--- NOTE | 2024-04-10 09:00 | PTCARENOTE ---
Assumed care of the patient from power and recovery shift engineer RN. Sitting up in the chair. AA O x 3. Daughter at bedside. PT c/o Rt thigh/groin pain. Discussed importance of taking heart medication and need for pain management to facilitate increasing
ambulation. SR on monitor. Room air 92%, IS demonstrated to 750, needs encouragement. Abdomen soft and non tender. Passing large amounts of flatus, denies nausea, appetite remains poor. Rt groin, inner thigh, inner knee, grossly ecchymotic and
tender to touch. Pt agreeable to try flexeril at present and ice pack to area. DP pulses palpable. Plan for discussed.
[2024-04-10] MEDS: LASIX 40 MG IV (10:17)
[2024-04-10] MEDS: TORADOL 15 MG IV (10:17)
[2024-04-10] MEDS: KCL 50 IV (10:21)
--- NOTE | 2024-04-10 10:25 | W.PN.CARDCBS ---
Today's Communication / Plan
-
Overall remains stable. Continue aspirin, Plavix, and atorvastatin.
Continue to hold beta-raheem with history of bradycardia. Blood pressure remains on the low side.
Hg improved at 8.2
Impression / Plan
-
PCP: Dr. Robledo
Creative Arts Music Therapist: Dr. Mcadams
Impression:
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
CAD s/p CABG with MOI to LAD, vein graft to OM-1 and LPL 1, vein graft to PDA 04/07/24
HTN
HLD
RBBB
Acute blood loss anemia
LHC 04/01/2024: Left main: Moderate to severe mid to distal atherosclerotic plaque with significant pressure wave dampening and ventricularization with a 6 [place] diagnostic catheter. LAD: 100% chronic total occlusion of the proximal portion with
left to left and right to left collaterals. 80 to 85% distal LAD stenosis. LCx: Aneurysmal dilation at the ostium with a 50 to 60% proximal left circumflex stenosis. 40% mid left circumflex stenosis and otherwise mild diffuse atherosclerotic
plaque. OM1 is a medium caliber vessel with an 80% ostial stenosis and a second 70% lesion proximally. OM 2 is a small caliber vessel with 85 to 90% proximal stenosis diffusely. Left posterolateral branch has an upper and lower branch which are
both medium in caliber. Ostium to proximal portion of the vessel has a diffuse up to 70% stenosis involving both branches. RCA: Serial 70% stenoses in the proximal to midportion. Otherwise there is diffuse moderate atherosclerotic plaque. RPDA
has 2 serial 70% stenoses.
Echo 04/01/2024: EF 55 to 60%, aortic sclerosis, trace AI, mild MAC with trace MR, trace TR, estimated PAP 20 mmHg
CHAS 04/07/2024: Postop EF 55 to 60%
Plan:
-s/p CABG with MOI to LAD, vein graft to OM-1 and LPL 1, vein graft to PDA 04/07/24
-Continue amiodarone.
-Metoprolol on hold at present given hypotension and transient ronni
-continue asa, plavix. Hemoglobin stable at 8.2
-continue lipitor
-OOB/IS as able
-was on bisoprolol/HCTZ and telmisartan/amlodipine prior to admission. will determine anti-HTN regimen for DC
HPI: Patient was referred for elective LHC on 04/01/24 by the [facility]. Patient reported that he had previously been recommended CABG in [place] in about 2019. Cardiac cath revealed MV CAD and patient was recommended admission
due to symptoms and severity of CAD.
Progress Note - Creative Arts Music Therapist
Subjective
Date of Service: April 10, 2024
Denies pain. Remains in sinus rhythm.
Objective
Labs:
04/10/24 04:22
04/10/24 04:22
Labs
Hgb 8.2 g/dL (13.0-18.0) L 04/10/24 04:22
Hct 23.4 % (39.0-52.0) L 04/10/24 04:22
Plt Count 111 10^3/uL (130-400) L 04/10/24 04:22
PT 21.4 Sec (11.4-14.6) H 04/07/24 14:44
INR 1.84 04/07/24 14:44
APTT 31.8 Sec (23.4-35.0) 04/07/24 14:44
Sodium 139 mmol/L (135-145) 04/10/24 04:22
Potassium 4.0 mmol/L (3.5-5.1) 04/10/24 04:22
BUN 28 mg/dl (9-20) H 04/10/24 04:22
Creatinine 1.0 mg/dL (0.7-1.3) 04/10/24 04:22
Glucose 116 mg/dl (70-99) H 04/10/24 04:22
Vital Signs and I&O:
Vital Signs
Temp Pulse Resp BP Pulse Ox
98.7 F 75 18 105/59 92
04/10/24 08:00 04/10/24 08:00 04/10/24 08:00 04/10/24 07:37 04/10/24 08:00
Vital Signs
Temp Pulse Resp BP Pulse Ox
98.7 F 75 18 105/59 92
04/10/24 08:00 04/10/24 08:00 04/10/24 08:00 04/10/24 07:37 04/10/24 08:00
Intake & Output
04/08/24 04/09/24 04/10/24 04/11/24
06:59 06:59 06:59 06:59
Intake Total 1737.8 / 1737.8 2763.6 / 2763.6 220 / 230 260 / 260
Output Total 2710 / 2710 1710 / 1710 2785 / 3235 450 / 450
Balance -972.2 / -972.2 1053.6 / 1053.6 -2565 / -3005 -190 / -190
Physical Exam
Physical Exam
GEN: No distress, awake, Ox3
HEENT: supple, anicteric, mmm
LUNGS: CTA, no wheezes/rales
CV: Reg, S1/S2, no murmur/rub
ABD: soft, BS+, NT/ND
EXT: No edema
NEURO: Gross non-focal
SKIN: No rash
--- NOTE | 2024-04-10 11:48 | PTCARENOTE ---
Sleeping comfortably in recliner. Denies pain at present. Poor appetite. VSS. Will continue to monitor closely.
[2024-04-10] MEDS: LIPITOR PO (16:07)
--- NOTE | 2024-04-10 16:07 | PTCARENOTE ---
RT IJ cordis removed. Pt tolerated w/o issue. Tolerating some soup at present that daughter brought from home. VSS. Assessment unchanged from prior.
[2024-04-10] MEDS: MAGNESIUM OXIDE 500 MG PO (21:18)
--- NOTE | 2024-04-10 21:30 | PTCARENOTE ---
Patient received OOB in chair. Patient's daughter at bedside. Patient A+A+Ox3. No neurological deficits noted. Room air. SpO2 91%. Sinus Rhythm with BBC. Heart rate 60-70's. Blood pressure 124/69 (85). Patient with no c/o chest pain,
pressure or discomfort. Ice pack intermittently to right lower extremity. Normoactive bowel sounds. No BM. No c/o nausea. No vomiting. Voiding without difficulty. Patient agreed to take Magnesium pill and Amiodarone pill. Patient assisted to
bed. Assessment as documented.
[2024-04-11] VITALS (17 sets, daily range): BP systolic 101–127; BP diastolic 58–73; PULSE 78–98; O2SAT 93; BMI 25.0
--- NOTE | 2024-04-11 01:00 | PTCARENOTE ---
Patient sleeping without difficulty. Assessment as documented.
--- NOTE | 2024-04-11 04:14 | W.PN.CT ---
Today's Communication / Plan
-
-No major issues overnight. Hemodynamically and neurologically intact
-Postop intermittent brief bradycardia with hypotension, BB currently on hold. Tolerating Amiodarone
-Off all drips. Midodrine transitioned to PRN. BP has improved
-Consider holding diuresis today given rising cr, 1.0 -> 1.2, pt is auto-diuresing
-D/C cordis
-H/H stable @ 8.6/24.7
-Plts improved 93K->111K-> 156K. Currently on ASA and Plavix
-Encourage use of IS
-OOB into chair
-Home likely today
Assessment / Plan
-
- MVCAD including SENIOR INSTRUCTOR of LAD - s/p CABG x 4 (MOI to LAD, GSV to OM1, GSV to LPL1, GSV to PDA), by Dr. Johnson, 04/07/24, pod #4
- Intraop CHAS: LVEF 55-60%, no RWMA, trace AI, trace MR
- HTN/HLD
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
- Pre-diabetes (HgA1c 6.1)
- Non-smoker
- Acute postop intermittent bradycardia mid 40s - ? vasovagal reaction
- Acute postop blood loss anemia - s/p 3pRBCs
- Acute postop thrombocytopenia
- Acute postop hypovolemia with subsequent hypervolemia
- Acute postop atelectasis
Discussed patient care with: Cardiology, Nursing, Respiratory Therapy, Pharmacy and Care Team
Subjective
Procedure
- s/p CABG x 4 (MOI to LAD, GSV to OM1, GSV to LPL1, GSV to PDA) on 04/07/24
-
Date of Service: April 11, 2024
C/o mild incisional pain, otherwise feels well
Objective Data
-
PT 21.4 Sec (11.4-14.6) H 04/07/24 14:44
INR 1.84 04/07/24 14:44
APTT 31.8 Sec (23.4-35.0) 04/07/24 14:44
Vital Signs
Vital Signs
Temp Pulse Resp BP Pulse Ox
98.3 F 66 18 102/64 99
04/11/24 00:45 04/11/24 00:45 04/11/24 00:45 04/11/24 00:45 04/11/24 00:45
CT Intake/Output/Weight
04/10/24 04/10/24 04/11/24
06:59 18:59 06:59
Intake Total 120 / 230 710 / 950 240 / 950
Output Total 500 / 3235 850 / 1150 300 / 1150
Balance -380 / -3005 -140 / -200 -60 / -200
SaO2: 99 (2L)
Physical Exam
-
General: Awake, Oriented and AOx3
Cardiovascular: Regular rate & rhythm, No Murmurs, No Rub and No Gallop
Respiratory: Decreased Breath Sounds (at bases, otherwise clear)
Sternum: Stable
Incision: Clean, Dry, Intact and Dressing Intact
Extremities: No Edema
Data Reviewed
-
Lab Results: Results Reviewed
Medications: Active Meds Reviewed
Chest X-Ray: Report Reviewed and Image Reviewed
ECG: Report Reviewed and Image Reviewed
[2024-04-11 05:04] LABS: Ionized Calcium 1.16 mMOL/L (1.15-1.33)
[2024-04-11 05:07] LABS: Hematocrit 24.7 % (39.0-52.0); Hemoglobin 8.6 g/dL (13.0-18.0); Mean Corp Hgb Conc. 34.8 g/dL (33.0-37.0); Mean Corpuscular Hgb 31.7 pg (27.0-31.0); Mean Corpuscular Volume 91.1 fL (80.0-94.0); Mean Platelet Volume 11.4 fL (7.4-10.4); Platelet Count 156 10^3/uL (130-400); Red Blood Cell Count 2.71 10^6/uL (4.70-6.10); Red Cell Dist. Width 13.2 % (11.5-14.5); White Blood Cell Count 5.7 10^3/uL (4.8-10.8)
--- NOTE | 2024-04-11 05:30 | PTCARENOTE ---
Patient A+A+Ox3. No neurological deficits noted. No c/o pain or discomfort. No c/o nausea. No vomiting. Resting in bed without difficulty. AM lab work collected and sent. Patient given CHG bath and linens changed. Patient back to sleep.
Assessment/Interventions as documented.
[2024-04-11 05:32] LABS: Blood Urea Nitrogen 29 mg/dl (9-20); Calcium 8.3 mg/dl (8.4-10.2); Carbon Dioxide 32 mmol/L (22-30); Chloride 101 mmol/L (98-107); Estimated Creatinine Clearance 52 ml/min; Glucose 105 mg/dl (70-99); Magnesium 1.9 mg/dl (1.6-2.3); Potassium 4.1 mmol/L (3.5-5.1); Sodium 141 mmol/L (135-145); eGFR > 60.00
[2024-04-11] MEDS: TYLENOL PO ×2 (05:35→19:43)
--- NOTE | 2024-04-11 08:00 | PTCARENOTE ---
pt received from previous RN, oriented, daughter at bedside to translate. SR w/ BBB on the monitor, HR 70s. SBP 110s. palpable pulses. pt on RA, 94% POX. lungs diminished in bases. IS encouraged. pt abdomen s/n, denies n/v. diet tolerated. voids in
urinal. sternal incision c/d/i. chest tube sites AMARJIT. R groin and R calf punctures intact. R knee incision c/d/i. PIV. see worklist for VS, I&O, and assessment.
[2024-04-11] MEDS: SENOKOT-S PO ×2 (08:26→19:41)
[2024-04-11] MEDS: VITAMIN B-12 PO (08:26)
[2024-04-11] MEDS: NEURONTIN PO ×3 (08:26→19:41)
[2024-04-11] MEDS: PROTONIX 40 MG PO (09:32)
[2024-04-11] MEDS: MAGNESIUM OXIDE 500 MG PO ×2 (09:32→19:48)
[2024-04-11] MEDS: LOW STRENGTH ASPIRIN 81 MG PO (09:33)
[2024-04-11] MEDS: NSS IV (09:33)
[2024-04-11] MEDS: PLAVIX 75 MG PO (09:33)
[2024-04-11] MEDS: PACERONE 200 MG PO ×3 (09:33→19:48)
[2024-04-11] MEDS: BACTROBAN 2% OINTMENT 1 APPLIC NASAL (09:33)
--- NOTE | 2024-04-11 12:15 | PTCARENOTE ---
pt VSS, no changes in assessment. ortho VS completed, BUS BOY aware of results. patient ambulated in hallway w/ RW and assist. daughter at bedside, attentive to patient. oral hygiene performed.
--- NOTE | 2024-04-11 12:39 | W.PN.CARDCBS ---
Addendum entered and electronically signed by Augustine Fang MD 04/11/24 14:14:
Attending addendum: Patient seen and examined. PA note reviewed and findings independently confirmed by me. Briefly, this is a 73-year-old [place] gentleman who was found to have multivessel coronary artery disease by coronary angiography on
04/01/2024 and underwent successful surgical revascularization on 04/07/2024 with a WATTS-LAD which was found to be heavily calcified and diffusely diseased, SVG-OM, SVG-PLV, SVG-PDA. I reviewed preoperative angiograms. 3 Vessel heavy coronary
calcifications. Echcariogram preop was notable for an LVEF 55-60%. Complaining of pain behind right thigh
GEN: AAO x 3. No acute distress. (Gujarati speaking)
HEENT: NC/AT, sclera are anicteric
LUNGS: Clear anterior and lateral. No wheezing.
CV: Regular rate and rhythm. Normal S1 and S2. No murmur noted
ABD : Soft, NT, ND, No HSM. Bowel sounds present
EXT: No CCE. Ecchymosis behind right thigh. Area is very tender but soft
NEURO: No focal neurologic deficits
RECOMMENDATIONS:
-Will repeat ECG +/- echo to reassess post op LVEF
-Increase mobilization
-Continue aspirin and clopidogrel
-Agree with high intensity statin for LDL 130
-Will follow
Original Note:
Today's Communication / Plan
-
Start midodrine 5 mg BID at 0800,1300 and hold for SBP greater than 140
Impression / Plan
-
PCP: Dr. Robledo
Pacu Rn: Dr. Mcadams
Impression:
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
CAD s/p CABG with MOI to LAD, vein graft to OM-1 and LPL 1, vein graft to PDA 04/07/24
HTN
HLD
RBBB
Acute blood loss anemia
Orthostasis
LHC 04/01/2024: Left main: Moderate to severe mid to distal atherosclerotic plaque with significant pressure wave dampening and ventricularization with a 6 Polish diagnostic catheter. LAD: 100% chronic total occlusion of the proximal portion with
left to left and right to left collaterals. 80 to 85% distal LAD stenosis. LCx: Aneurysmal dilation at the ostium with a 50 to 60% proximal left circumflex stenosis. 40% mid left circumflex stenosis and otherwise mild diffuse atherosclerotic
plaque. OM1 is a medium caliber vessel with an 80% ostial stenosis and a second 70% lesion proximally. OM 2 is a small caliber vessel with 85 to 90% proximal stenosis diffusely. Left posterolateral branch has an upper and lower branch which are
both medium in caliber. Ostium to proximal portion of the vessel has a diffuse up to 70% stenosis involving both branches. RCA: Serial 70% stenoses in the proximal to midportion. Otherwise there is diffuse moderate atherosclerotic plaque. RPDA
has 2 serial 70% stenoses.
Echo 04/01/2024: EF 55 to 60%, aortic sclerosis, trace AI, mild MAC with trace MR, trace TR, estimated PAP 20 mmHg
CHAS 04/07/2024: Postop EF 55 to 60%
Plan:
-Patient with symptomatic orthostasis. Will add midodrine 5 mg BID at 0800,1300 and hold parameters for SBP less than 140.
-Hgb stable at 8.6 on 04/11/24, last transfusion was 04/09/24.
-s/p CABG with MOI to LAD, vein graft to OM-1 and LPL 1, vein graft to PDA 04/07/24
-Continue amiodarone 200 mg TID. Follow HRs on tele.
-Lopressor on hold due to bradycardia and hypotension.
-Continue aspirin and Plavix.
-LDL 130. Outpatient dose of atorvastatin increased to 80 mg daily.
-was on bisoprolol/HCTZ and telmisartan/amlodipine prior to admission all of which are now on hold.
HPI: Patient was referred for elective LHC on 04/01/24 by the [facility]. Patient reported that he had previously been recommended CABG in [place] in about 2019. Cardiac cath revealed MV CAD and patient was recommended admission
due to symptoms and severity of CAD.
Progress Note - Pacu Rn
Subjective
Date of Service: April 11, 2024
He has right thigh pain
Objective
Labs:
04/11/24 04:54
04/11/24 04:54
Labs
Hgb 8.6 g/dL (13.0-18.0) L 04/11/24 04:54
Hct 24.7 % (39.0-52.0) L 04/11/24 04:54
Plt Count 156 10^3/uL (130-400) D 04/11/24 04:54
PT 21.4 Sec (11.4-14.6) H 04/07/24 14:44
INR 1.84 04/07/24 14:44
APTT 31.8 Sec (23.4-35.0) 04/07/24 14:44
Sodium 141 mmol/L (135-145) 04/11/24 04:54
Potassium 4.1 mmol/L (3.5-5.1) 04/11/24 04:54
BUN 29 mg/dl (9-20) H 04/11/24 04:54
Creatinine 1.2 mg/dL (0.7-1.3) 04/11/24 04:54
Glucose 105 mg/dl (70-99) H 04/11/24 04:54
Vital Signs and I&O:
Vital Signs
Temp Pulse Resp BP Pulse Ox
98.1 F 81 16 114/67 93
04/11/24 12:20 04/11/24 12:00 04/11/24 12:12 04/11/24 11:51 04/11/24 12:12
Vital Signs
Temp Pulse Resp BP Pulse Ox
98.1 F 81 16 114/67 93
04/11/24 12:20 04/11/24 12:00 04/11/24 12:12 04/11/24 11:51 04/11/24 12:12
Intake & Output
04/09/24 04/10/24 04/11/24 04/12/24
06:59 06:59 06:59 06:59
Intake Total 2763.6 / 2763.6 220 / 230 950 / 950 200 / 200
Output Total 1710 / 1710 2785 / 3235 1400 / 1400 225 / 225
Balance 1053.6 / 1053.6 -2565 / -3005 -450 / -450 -25 / -25
Physical Exam
Physical Exam
GEN: NAD
HEENT: MMM
LUNGS: Using IS. No audible wheeze
CV: SR on tele
ABD: ND
EXT: Right thigh hematoma that is tender to touch.
NEURO: Gross non-focal
SKIN: No rash
[2024-04-11] MEDS: TYLENOL 1000 MG PO (13:28)
[2024-04-11] MEDS: ProAmatine 5 MG PO (13:28)
--- NOTE | 2024-04-11 15:47 | PTCARENOTE ---
pt VSS. no changes in assessment. pt resting between care. EKG completed, ECHO at bedside.
[2024-04-11] MEDS: LIPITOR 80 MG PO (17:07)
--- NOTE | 2024-04-11 17:57 | CM ---
spoke with pt and daughter in room, plan is for dc to home with daughter when medically stable and f/u visit fro the ct transitional care nurse.
--- NOTE | 2024-04-11 20:00 | PTCARENOTE ---
pt received from previous RN, walking rounds done. AAOx3. SR w/ BBB on the monitor, HR 70s. VSS. + pulses. 96%RA. IS 1000. +bs. brp/urinal. all surgical sites c/d/i. PIV patent. will continue to monitor
[2024-04-12] VITALS (7 sets, daily range): BP systolic 104–116; BP diastolic 57–75; PULSE 76; O2SAT 96–97; BMI 25.0
[2024-04-12] MEDS: TYLENOL PO (01:17)
--- NOTE | 2024-04-12 04:20 | PTCARENOTE ---
VSS. no changes in assessment. resting in bed.
--- NOTE | 2024-04-12 04:38 | W.PN.CT ---
Today's Communication / Plan
-
-pod #5
-no issues overnight
- nsr 60s, BP 112/70 in am- on Midodrine 5 bid. Lopressor on hold
-current meds (ASA, Plavix, Lipitor, Midodrine, Amio, Protonix)
-encourage IS, OOB
-ambulate as tolerated
-possible d/c soon
Assessment / Plan
-
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 Johnson, 04/07/24, pod #5
- Intraop CHAS: LVEF 55-60%, no RWMA, trace AI, trace MR
- HTN/HLD
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
- Pre-diabetes (HgA1c 6.1)
- Non-smoker
- Acute postop intermittent bradycardia mid 40s - ? vasovagal reaction
- Acute postop blood loss anemia - s/p 3pRBCs
- Acute postop thrombocytopenia
- Acute postop hypovolemia with subsequent hypervolemia
- Acute postop atelectasis
Discussed patient care with: Nursing and Care Team
Subjective
Procedure
- s/p CABG x 4 (MOI to LAD, GSV to OM1, GSV to LPL1, GSV to PDA) on 04/07/24
-
Date of Service: April 12, 2024
Objective Data
-
Lab Results
04/11/24 04:54
04/11/24 04:54
PT 21.4 Sec (11.4-14.6) H 04/07/24 14:44
INR 1.84 04/07/24 14:44
APTT 31.8 Sec (23.4-35.0) 04/07/24 14:44
Vital Signs
Vital Signs
Temp Pulse Resp BP Pulse Ox
98.7 F 66 18 112/70 95
04/12/24 04:00 04/12/24 04:00 04/11/24 20:00 04/12/24 03:53 04/12/24 04:00
CT Intake/Output/Weight
04/11/24 04/11/24 04/12/24
06:59 18:59 06:59
Intake Total 240 / 950 200 / 200
Output Total 550 / 1400 225 / 225
Balance -310 / -450 -25 / -25
SaO2: 95
Physical Exam
-
General: Awake, Oriented and AOx3
Cardiovascular: Regular rate & rhythm, No Murmurs, No Rub and No Gallop
Respiratory: Decreased Breath Sounds (at bases, otherwise clear)
Sternum: Stable
Incision: Clean, Dry, Intact and Dressing Intact
Extremities: No Edema
Data Reviewed
-
Lab Results: Results Reviewed
Medications: Active Meds Reviewed
Chest X-Ray: Report Reviewed and Image Reviewed
ECG: Report Reviewed and Image Reviewed
--- NOTE | 2024-04-12 08:00 | PTCARENOTE ---
Received pt from night assistant RN; pt AAOx3 and resting comfortably in chair; NSR on monitor and VSS; PIVx1 patent; Lungs diminished; IS to 1000; positive bowel sounds; pt voiding yellow urine; palpable pulses throughout; no edema noted; surgical
sites C/D/I; see nursing documentation for further details.
[2024-04-12] MEDS: ProAmatine 5 MG PO ×2 (08:28→12:01)
[2024-04-12] MEDS: PROTONIX 40 MG PO (08:28)
[2024-04-12] MEDS: LOW STRENGTH ASPIRIN 81 MG PO (08:28)
[2024-04-12] MEDS: PLAVIX 75 MG PO (08:28)
[2024-04-12] MEDS: PACERONE 200 MG PO (08:29)
[2024-04-12] MEDS: VITAMIN B-12 PO (08:30)
[2024-04-12] MEDS: SENOKOT-S PO (08:30)
[2024-04-12] MEDS: MAGNESIUM OXIDE PO (08:30)
[2024-04-12] MEDS: NEURONTIN PO (08:30)
--- NOTE | 2024-04-12 08:55 | W.DCSUMMARY ---
Discharge Summary
Discharge Data
Date of Admission: 04/01/24
Date of Discharge: 04/12/24
-
Pending Results: No
Hospital Course
Primary care physician: Andreas Olvera
Outpatient senior web designer: Poncho
Inpatient consultants: TON
Procedures:
1. 04/07/24 CABG x4 (WATTS-LAD, SVG-OM1, SVG-LPL1, SVG-PDA) by Dr. Alo Johnson
Primary Diagnosis:
1. stable angina
2. multivessel coronary artery disease
Secondary Diagnoses:
1. Hypertension
2. Hyperlipidemia
3. Right bundle branch block
4. Left anterior fascicular block
5. Prediabetes
6. Postop orthostasis, improved with midodrine
HPI: Patient is a 73-year-old male with known coronary artery disease who presented to his outpatient senior web designer with complaints of exertional angina, he was then scheduled for elective cardiac catheterization that demonstrated multivessel
coronary artery disease. He was admitted postcatheterization for workup for CABG. After all preoperative workup was completed and Plavix washout, he was deemed a suitable candidate to undergo the procedure.
Hospital course: Patient was taken to the OR on 04/07/2024 where he underwent CABG x 4 without any perioperative complications. He was transferred to CVICU per protocol Levophed at 5 and Precedex and insulin drips. 2 units of packed red blood cells
transfused for postoperative blood loss anemia. He was extubated that evening at 6:30 PM. On postop day 1 patient remains on low-dose Levophed, aspirin and Plavix started for bypass grafts. Midodrine 10mg 3 times daily started. On postop day 2
patient has been weaned off of Levophed, he was declined and [place] discontinued. Chest tubes removed without incident. 1 unit packed red blood cells transfused for hemoglobin of 7.2. Lasix IV given x 1. Transfer to telemetry phase. On postop
day 3 cordis is discontinued he was given 1 more dose of IV Lasix. He continues to improve with ambulation. Weaned off midodrine. On postop day 4 patient continues to complain of orthostasis, midodrine has been resumed at 5mg BID. Lightheadedness
resolving, ambulating multiple times without difficulty. On postop day 5 he ambulated with cardiac rehab ended steps. He is discharged to home in the care of his family. Transitional care nurse from [facility] will follow-up with him in
the next 1 to 2 days.
Home medication changes: New prescription for atorvastatin for hyperlipidemia/coronary disease. �New prescription for midodrine 5 mg twice daily for symptomatic low blood pressure. Patient instructed to stop all antihypertensives at this time,
continue aspirin and Plavix. Tylenol as needed for pain.
Discharge Plan
-
Patient Disposition: Home (Routine Discharge)
Discharge Diagnosis/Procedures: stable angina, s/p CABG x4
Condition: Good
Diet: Low Fat and Low Cholesterol
Activity: No strenuous activity
Driving Restrictions: Not until seen by your Dr
Bathing Restrictions: OK to Shower
Other Services: Cardiac Rehab
Wound Care: cut stitch in leg at 7-10days post surgery
Activity Restrictions/Additional Instructions:
ACTIVITY:
-No strenuous activity: no heavy lifting, pushing, pulling anything over 15 pounds for one month
-continue to use stairs as tolerated
DRIVING RESTRICTIONS:
-No driving for one month or until approved by your surgeon
WOUND CARE:
-Shower daily. Use soap & water.
-No lotions, creams or powders on incision area.
DIET:
-continue a low fat/low cholesterol diet.
-IF you are diabetic, continue carb controlled diet.
CARDIAC REHAB:
-Please make appointment to start in 5-6 weeks with your local hospital program. (See Cardiac Rehabilitation Discharge Booklet).
SPECIALTY INSTRUCTIONS:
-Weigh yourself daily. Call your physician for any weight gain/loss of 3 lbs overnight or 5 lbs in one week.
-REPORT any clicking noise or uneven appearance of your sternum to your surgeon immediately.
-If you smoke, you are instructed to quit. The [place] smoking hotline phone number is [phone]
Referrals:
CT Transitional Care Nurse [Outside] (The Cardiothoracic Transitional Care Nurse will call you to set up a visit in 1-2 days.)
[facility] [Outside] - 05/16/24 1:00 pm
(Cardiac Rehab Orientation appointment is on Thursday05/16/24 AT 1 PM
The Cardiac Rehab gym is located on the first floor of the [facility].)
Misha Cisneros MD [Active] - in one to two months (Will need discussion regarding right lower lobe lung nodules x2 found on CT chest from 04/02/[address]. [address] chest in 3 months to assess stability.)
Paulette Downs PA-C [Specified Professional Personl] - 05/18/24 1:20 pm
Alo Johnson MD [Active] - 05/10/24 2:00 pm
UNKNOWN - PT DOES,NOT KNOW [Family Provider] -
Prescriptions:
New
atorvastatin 80 mg Tablet
80 mg PO QPM Qty: 30 1RF
acetaminophen 325 mg Tablet
650 mg PO Q6HPRN PRN (Reason: mild pain,headache,temp >101F ) Qty: 0 0RF
sennosides-docusate sodium 8.6-50 mg Tablet
1 tab PO Q12 PRN (Reason: Constipation) Qty: 0 0RF
midodrine 5 mg Tablet
5 mg PO BID@0800,1300 Qty: 60 0RF
Continued
clopidogrel 75 mg Tablet
75 mg PO DAILY
pantoprazole 40 mg Tablet,Delayed Release (Dr/Ec)
40 mg PO DAILY
aspirin 81 mg Tablet,Chewable
81 mg PO DAILY
Discontinued
atorvastatin 20 mg Tablet
20 mg PO QPM
bisoprolol-hydrochlorothiazide 2.5-6.25 mg Tablet
1 tab PO DAILY
telmisartan-amlodipine 40-5 mg Tablet
1 tab PO DAILY
Discharge Orders:
Discharge Patient (As Directed); Ordered 04/12/24
Ordered By: Linnea Ramires
Care Plan Goals
Care Plan Goals:
Problem: Readiness for enhanced knowledge related to diagnosis and treatment plan
Goal: Understand your diagnosis and treatment plan needs, including medications if applicable.
Instructions: Know your diagnosis, underlying causes and treatment plan options, including medications if applicable. Consult with your health care team to learn about your diagnosis and treatment plan, including medications if applicable.
Discharge Date and Time
Discharge Date/Time: 04/12/24 13:00
Print Language: TURKISH
[2024-04-12] MEDS: FLUAD (65 yr+) 2024-2025 FORMULA 0.5 ML IM (11:59)
--- NOTE | 2024-04-12 12:05 | PTCARENOTE ---
Assessment unchanged; pt showered self and dressed self for discharge today; daughter at bedside and all questions answered; awaiting discharge paperwork.
--- NOTE | 2024-04-12 13:02 | PTCARENOTE ---
Discharge paperwork gone over with daughter and all questions answered; pt discharged in wheelchair with daughter to home.
== END 2024-04-12 13:00 | disposition home or self-care (01) | DRG 234 ==
LOC: CVICU 12:09
PROVIDERS: Anesthesiology; Clinical Nurse Specialist Acute Care; Internal Medicine Cardiovascular Disease; Internal Medicine Interventional Cardiology; Nurse Practitioner; Physician Assistant Medical; ADMITTING PHYSICIAN Hospitalist; ATTENDING PHYSICIAN Thoracic Surgery (Cardiothoracic Vascular Surgery); CONSULT PHYSICIAN Internal Medicine Critical Care Medicine
PROC: 4A023N7 Measurement of Cardiac Sampling and Pressure, Left Heart, Percutaneous Approach (ICD-10-PCS; 2024-04-01)
PROC: B2111ZZ Fluoroscopy of Multiple Coronary Arteries using Low Osmolar Contrast (ICD-10-PCS; 2024-04-01)
PROC: B2151ZZ Fluoroscopy of Left Heart using Low Osmolar Contrast (ICD-10-PCS; 2024-04-01)
PROC: 021209W Bypass Coronary Artery, Three Arteries from Aorta with Autologous Venous Tissue, Open Approach (ICD-10-PCS; 2024-04-07)
PROC: 02100ZC Bypass Coronary Artery, One Artery from Thoracic Artery, Open Approach (ICD-10-PCS; 2024-04-07)
PROC: 5A1221Z Performance of Cardiac Output, Continuous (ICD-10-PCS; 2024-04-07)
PROC: 06BP4ZZ Excision of Right Saphenous Vein, Percutaneous Endoscopic Approach (ICD-10-PCS; 2024-04-07)
PROC: 30233N1 Transfusion of Nonautologous Red Blood Cells into Peripheral Vein, Percutaneous Approach (ICD-10-PCS; 2024-04-07)
PROC: B24BZZ4 Ultrasonography of Heart with Aorta, Transesophageal (ICD-10-PCS; 2024-04-07)
PROC: 3E02340 Introduction of Influenza Vaccine into Muscle, Percutaneous Approach (ICD-10-PCS; 2024-04-12)
DX: I25.110 Atherosclerotic heart disease of native coronary artery with unstable angina pectoris (principal); I45.2 Bifascicular block; D62 Acute posthemorrhagic anemia; J98.11 Atelectasis; I10 Essential (primary) hypertension; E78.00 Pure hypercholesterolemia, unspecified; K21.9 Gastro-esophageal reflux disease without esophagitis; E83.51 Hypocalcemia; R91.1 Solitary pulmonary nodule; I95.1 Orthostatic hypotension; E53.8 Deficiency of other specified B group vitamins; R00.1 Bradycardia, unspecified; D69.59 Other secondary thrombocytopenia; I25.82 Chronic total occlusion of coronary artery; E87.70 Fluid overload, unspecified; E86.1 Hypovolemia; R73.03 Prediabetes; Z23 Encounter for immunization; Z79.02 Long term (current) use of antithrombotics/antiplatelets; Z79.82 Long term (current) use of aspirin; Z79.899 Other long term (current) drug therapy
CPT/HCPCS: 93308; 71045; 71046; 71250; 80048; 80053; 80061; 81003; 81015; 82248; 82330; 82565; 82607; 82728; 82746; 82805; 82947; 82962; 83036; 83540; 83550; 83735; 84132; 84302; 84520; 85014; 85018; 85027; 85045; 85049; 85610; 85730; 86803; 86850; 86900; 86901; 86920; 90662; 93005; 93306; 93312; 93320; 93321; 93325; 93458; 93880; 94002; 99152; 99153; C1894; G0008; P9016; P9045; P9047; Q9967

== ENCOUNTER → 2024-05-23 08:09 | Outpatient (REF) | payer OTHER, SELFPAY ==
[2024-05-23 09:25] LABS: HDL Cholesterol 70 mg/dl; LDL Cholesterol, Calculated 99 mg/dl; Total Cholesterol 189 mg/dl (50-199); Triglyceride 104 mg/dl (10-149); Very Low Density Lipoprotein 20 mg/dl (0-30)
[2024-05-23 10:08] LABS: Vitamin B12 232 pg/ml (239-931)
== END ==
LOC: REG 08:09
PROVIDERS: ATTENDING PHYSICIAN Family Medicine
DX: I25.118 Atherosclerotic heart disease of native coronary artery with other forms of angina pectoris (principal)
CPT/HCPCS: 36415; 80061; 82607

== ENCOUNTER 2024-05-27 17:35 | Outpatient (RCR) | payer OTHER, SELFPAY | END 2024-05-27 23:59 | disposition home or self-care (01) | LOC: CRHB 17:35 | PROVIDERS: ATTENDING PHYSICIAN Internal Medicine Cardiovascular Disease; FAMILY PHYSICIAN Family Medicine | DX: I25.118 Atherosclerotic heart disease of native coronary artery with other forms of angina pectoris (principal); Z95.1 Presence of aortocoronary bypass graft; I10 Essential (primary) hypertension; E78.2 Mixed hyperlipidemia; I45.2 Bifascicular block | CPT/HCPCS: 93798 ==